=== PATIENT | female | born 1970 | race Caucasian/White ===

== ENCOUNTER 2022-08-12 21:27 | Outpatient (REF) | payer BC, SELFPAY ==
[2022-08-17 14:08] LABS: Age Gdln ACOG Testing Note (.); HPV Aptima Negative (Negative); IGP, Aptima HPV, rfx 16/18,45 Note (.)
== END 2022-08-12 21:28 | disposition home or self-care (01) ==
LOC: LAB 21:27
PROVIDERS: Visit Provider Obstetrics & Gynecology
DX: Z12.4 Encounter for screening for malignant neoplasm of cervix (principal); Z11.51 Encounter for screening for human papillomavirus (HPV)
CPT/HCPCS: 87624; G0145

== ENCOUNTER 2023-10-06 20:07 | Outpatient (REF) | payer BC, OTHER, SELFPAY ==
[2023-10-12 18:11] LABS: Age Gdln ACOG Testing Note (.); HPV Aptima Negative (Negative); IGP, Aptima HPV, rfx 16/18,45 Note (.)
== END 2023-10-06 20:08 | disposition home or self-care (01) ==
LOC: LAB 20:07
PROVIDERS: Visit Provider Physician Assistant
DX: Z01.419 Encounter for gynecological examination (general) (routine) without abnormal findings (principal)
CPT/HCPCS: 87624; 88175

== ENCOUNTER 2024-10-09 19:20 | Outpatient (REF) | payer OTHER, SELFPAY ==
--- OUTSIDE RECORDS SUMMARY | 2024-04-04 05:00 | XMS_ITS ---
Author Organization [facility] in [place] Address [address] [place] [address] Care Team Providers Care Section Laborer Name Role Phone None, Unknown or Primary Care Provider Unavailab Randy Rosas Unavailable [phone] Allergies No Known Allergies REASON FOR VISIT Panniculectomy and Breast Aug Medications Medication SIG (Take, Route, Fr equency, Duration) Notes Start Date End Date Status Singulair 10 MG 1 tablet Orally Once a day Active Zoloft 25 MG 1 tablet Orally Once a day Active Omeprazole 20 MG 1 capsule 1/2 to 1 h our before morning meal Orally Once a day A ctive ProAir HFA Active Social History Tobacco Use: Social History Observation Description Date Details (start date - stop date) Former Smoker 03/25/1995 - 03/25/2020 Tobacco Control (Standard) Question Answer Notes Tobacco use: Former smoker When did you start smoking? 03/25/1995 When did you stop smoking? 03/25/2020 How long has it been since you last smoked? 1-5 years Problems Problem Type SNOMED Code ICD Code Onset Dates Problem Status W/U Status Risk Notes Problem Abdominal pannus (E65) Active confirmed Vital Signs Blood pressure systolic 121 mm Hg 04/04/19 25 Blood pressure diastolic 69 mm Hg 025 Height 5ft 7in in 04/04/2024 Weight 157 lbs 04/04/2024 BMI 24.59 kg/m2 04/04/2024 Encounters Encounter Location Date Provider Diagnosis The [address] [place] [address] 04/04/2024 Randy Acosta Abdominal pannus E65 and Preoperative examination Z01.818 Assessments Encounter Date Diagnosis (ICD Code) Assessment Notes Treatment Notes Treatment Clinical Notes Section Notes 04/04/2024 Abdominal pannus (ICD-10 - E65) Yvonne was seen in the office today for an evaluation for panniculectomy. Patient has done a fantastic job with losing very large amount of weight. 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 This is significantly impacting the patient's life and further exercise goals.Panniculus does not hang below the level of the pubis, documented by photographs. Patient has/has not tried topical solutions for intertrigo for greater than 3 months. I do expect that a panniculectomy is expected to restore normal function or improve functional deficit. Patient has maintained current weight for greater than 6 months. Patient has undergone bariatric surgery at least 18 months ago. I have discussed all risks, benefits, alternatives, and potential complications of panniculectomy including but not limited to bleeding, infection, seroma formation, wound healing issues including ischemia to the flap, necrotizing fasciitis, medical complications including but not limited to thromboembolic processes, anesthesia complications, and injury to surrounding structures. Patient understands all these risks and is willing to proceed. 04/04/2024 Preoperative examination (ICD-10 - Z01.818) 04/04/2024 Other We also discuss ed the patient's issue with her bilateral skin laxity and the surgical options for this. We will send her a quote for abdominoplasty and breast augmentation with lift and when she is ready she is welcome to call. Plan Of Treatment Treatment Notes Assessment Notes Abdominal pannus Yvonne was seen in the office today for an evaluation for panniculectomy. Patient has done a fantastic job with losing very large amount of weight. 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 This is significantly impacting the patient's life and further exercise goals.Panniculus does not hang below the level of the pubis, documented by photographs. Patient has/has not tried topical solutions for intertrigo for greater than 3 months. I do expect that a panniculectomy is expected to restore normal function or improve functional deficit. Patient has maintained current weight for greater than 6 months. Patient has undergone bariatric surgery at least 18 months ago. I have discussed all risks, benefits, alternatives, and potential complications of panniculectomy including but not limited to bleeding, infection, seroma formation, wound healing issues including ischemia to the flap, necrotizing fasciitis, medical complications including but not limited to thromboembolic processes, anesthesia complications, and injury to surrounding structures. Patient understands all these risks and is willing to proceed. Other We also discussed th e patient's issue with her bilateral skin laxity and the surgical options for this. We will send her a quote for abdominoplasty and breast augmentation with lift and when she is ready she is welcome to call. Next Appt Details Follow Up: after precertific ation, Reason: Progress Notes * Mark Anthony GALINDOOB:1970 (54 yo F)Acc No.[id number]:04/04/2024 Progress Notes Patient: Yvonne MONAE Provider: Amber Acosta DO :1970 A ge:54 Y S ex:Female Date:04/04/2024 Address:[facility] [address] [place], [id number] Pcp:Unknown or None Check In:09:11 AM ESTCheck O ut:09:52 AM EST Subjective: * Chief Complaints: * P anniculectomy and Breast Aug * HPI: G eneral: Yvonne is a 54 y/o female who was seen in the office today in consultation for panniculectomy. The patient has previously seen me at [facility] for this. Patient appears with bruising to her face and a headache which the patient reports that she slipped on ice and fell. Patient states that she had a regular mammogram last year at [facility] and has not had any suspicious findingspreviously. Patient has a current bra size of 36DD. - - - - - - - - - - - - - - - - - - - - - - - - - - - - - - - - - - - - - - - - - - - - - - - - - - - - - - - - - - - - - - - - - - - - - - - - - - - - - - - - - - - - - - - - Panniculectomy Work Sheet: Beginning weight: 251 lbs Current weight: 157 lbs How long stable weight: 1 year Smoking: Previously, quit in 2020 Diabetes: No Steroids/Immune Modulators: No Surgery: Gastric By-pass Surgery Date: 2020 Surgeon: Dr. Vasquez Exercise: She works and standing with power walk Hindering Further Exercise/Weight Loss Goals: No ADLs': Infections/Intertrigo: Yes, infection of her umbilicus Treatment: Wash soap/water + keeping the area clean and dry Back Pain: No Treatment: No. * ROS: C ONSTITUTIONAL: good general health, no recent weight change, no fever, no fatigue, no headaches EYES: no eye disease or injury, no glasses/contacts, no blurred/double vision, no glaucoma ENT: No hearing loss or ringing, no chronic sinus problems or rhinitis, no nose bleeds, no sore throat or voice change, no swollen glands in neck CARDIOVASCULAR: No heart trouble, no chest pain or angina, no palpitations, no shortness of breath with walking or lying flat, no swelling of feet, ankles, or hands RESPIRATORY: no chronic or frequent coughs, no spitting up blood, no shortness of breath, no asthma or wheezing GASTROINTESTINAL: No loss of appetite, no change in bowel movements, no nausea or vomiting, no frequent diarrhea, no painful bowel movements or constipation, no rectal bleeding or blood in stool, no abdominal pain or heartburn, no peptic ulcer GENITOURINARY: no frequent urination, no burning or painful urination, no blood in the urine, no change in force or strain with urination, no incontinence or dribbling, no kidney stones, no sexual difficulty, no pain with periods, no irregular periods MUSCULOSKELETAL: no joint pain, no joint stiffness or swelling, no weakness of muscles or joints, no muscle pain or cramps, no back pain, no cold extremities, no difficulty walking INTEGUMENTARY: no rash or itching, no breast pain, no breast lump, no breast discharge NEUROLOGICAL: No frequent or recurring headaches, no lightheadedness or dizziness, no convuslsions or seizures, no numbness or tingling sensation, no tremors, no paralysis, no stroke, no head injury PSYCHIATRIC: no memory loss or confusion, no nervousness, no depression, no insomnia ENDOCRINE: no glandular or hormone problem, no thyroid disease, no diabetes, no excessive thirst or urination, no heat or cold intolerance, skin not becoming dryer HEMATOLOGIC/LYMPHATIC: Not slow to heal after cuts, no bleeding or bruising tendency, no anemia, no phlebitis, no past transfusions, no enlarged glands. * Active Problem List E65 Abdominal pannus Modified On:04/04/2024W/U Status:confirmed * Medical History: * Surgical History: t ubal ligation hysterectomy gastric bypass 2020 * Hospitalization/Major Diagno stic Procedure: D enies Past Hospitalization * Family History: F ather: . M other: alive. S ister(s): alive. 2 sister(s) . 2 son(s) , 1 daughter(s) - healthy. . * Social History: T obacco Use: T obacco Control (Standard) T obacco use: F ormer smoker W hen did you start smoking? 0 03/25/1995 W hen did you stop smoking? 0 03/25/2020 H ow long has it been since you last smoked??1-5 years * Medications: T akingOmeprazole 20 MG Capsule Delayed Release 1 capsule 1/2 to 1 hour before morning meal Orally Once a day ProAir HFA Singulair(Montelukast Sodium) 10 MG Tablet 1 tablet Orally Once a day Zoloft(Sertraline HCl) 25 MG Tablet 1 tablet Orally Once a day Medication List reviewed and reconciled with the patientTaking Omeprazole 20 MG Capsule Delayed Release 1 capsule 1/2 to 1 hour before morning meal Orally Once a day Taking ProAir HFA Taking Singulair(Montelukast Sodium) 10 MG Tablet 1 tablet Orally Once a day Taking Zoloft(Sertraline HCl) 25 MG Tablet 1 tablet Orally Once a day Medication List reviewed and reconciled with the patient * Allergies: N .K.D.A.no[Allergies Verified] Objective: * Vitals: W t:157lbs, Ht: 5ft 7in, BP:121/69mm Hg, BMI:24.59Index, Ht-cm: 170.18 cm, Wt-k.21 kg. * Examination: G eneral Examination: GENERAL APPEARANCE: Alert, well hydrated, in no distress, some facial bruising which patient addressed was due to a fall . ENT: normocephalic, atraumatic. PULMONARY: clear bilateral breath sounds. CHEST: normal anteroposterior (AP) diameter. CARDIO: regular rate and rhythm. BREASTS: B ilateral Breasts - Right Breast Sternal Notch to Nipple: 26 cmRight Breast Nipple to IMF: 7 cmRight Breast Base Diameter: 16 cm Left Breast Sternal Notch to Nipple: 27 cmLeft Breast Nipple to IMF: 8 cmLeft Breast Base Diameter: 17 cm Nipple to Nipple: 24 cm . ABDOMEN: S oft, nontender, nondistended, positive bowel sounds, no peritoneal signs Pannus does not hang below the pubis Pictures were taken in the office today. PERIPHERAL PULSES: 2+ throughout. SKIN: normal. Assessment: * Assessment: 1. A bdominal pannus - E65 (Primary) 2 . P reoperative examination - Z01.818 Plan: * Treatment: 2. P reoperative examination L AB: HEMOGLOBIN A1C (GLYCO) (Order Cancelled) L AB: COTININE/NICOTINE, BLOOD (Order Cancelled) L AB: VITAMIN D, 25 LEVEL (TOTAL) (Order Cancelled) L AB: DRUG SCREEN - URINE W/CONFIRM (Order Cancelled) 3. O thers Notes: We also discussed the patient's issue with her bilateral skin laxity and the surgical options for this. We will send her a quote for abdominoplasty and breast augmentation with lift and when she is ready she is welcome to call. * Procedure Codes: * Disposition & Communication: * Scribe Attestation: Geraldine Jamison (scribe), documented on behalf of Dr. Randy Acosta * Follow Up: a fter precertification * * Sign off status: Completed Visit Status: C HK (Check Out) true * Provider: Amber Acosta DO Date: 0 04/04/2024 Generated for Arleth perez/Louisa/Bevitting on: 0 10/09/2024 02:53 PM EDT History and Physical Notes * HPI (History of Present Illness) Category Sub-Category Detail Notes Category Not es General Yvonne is a 54 y/o female who was seen in the office today in consultation for panniculectomy. The patient has previously seen me at [facility] for this. Patient appears with bruising to her face and a headache which the patient reports that she slipped on ice and fell. Patient states that she had a regular mammogram last year at [facility] and has not had any suspicious findings previously. Patient has a current bra size of 36DD. - - - - - - - - - - - - - - - - - - - - - - - - - - - - - - - - - - - - - - - - - - - - - - - - - - - - - - - - - - - - - - - - - - - - - - - - - - - - - - - - - - - - - - - - Panniculectomy Work Sheet: Beginning weight: 251 lbs Current weight: 157 lbs How long stable weight: 1 year Smoking: Previously, quit in 2020 Diabetes: No Steroids/Immune Modulators: No Surgery: Gastric By-pass Surgery Date: 2020 Surgeon: Dr. Vasquez Exercise: She works and standing with power walk Hindering Further Exercise/Weight Loss Goals: No ADLs': Infections/Intertrigo: Yes, infection of her umbilicus Treatment: Wash soap/water + keeping the area clean and dry Back Pain: No Treatment: No Examination Category Sub-Category Detail Notes Category Not es General Examination GENERAL APPEARANCE: Alert, w ell hydrated, in no distress, some facial bruising which patient addressed was due to a fall ENT: normocephalic, atrau matic CARDIO: regular rate and rhy thm CHEST: normal anteroposteri or (AP) diameter ABDOMEN: Soft, nontender, non distended, positive bowel sounds, no peritoneal signs Pannus does not hang below the pubis Pictures were taken in the office today SKIN: normal PERIPHERAL PULSES: 2+ throughout BREASTS: Bilateral Breasts - Right Breast Sternal Notch to Nipple: 26 cmRight Breast Nipple to IMF: 7 cmRight Breast Base Diameter: 16 cm Left Breast Sternal Notch to Nipple: 27 cmLeft Breast Nipple to IMF: 8 cmLeft Breast Base Diameter: 17 cm Nipple to Nipple: 24 cm PULMONARY: clear bilateral benito th sounds
--- OUTSIDE RECORDS SUMMARY | 2024-10-09 15:00 | XMS_ITS | Encounter Summary ---
Author Organization [facility] Address [address] [place] [address] Care Team Providers Care Accountant Clerk Name Role Phone Laura Madden MD Primary Care Provider [phone]- [phone] Reason for Visit * Reason Comments Well Women Visit Encounter Details Date Type Department Care Team (Late st Contact Info) Description 10/09/2024 3:00 PM EDT Office Visit [facility] [address] [place] [id number] Gemini Orta PA [address] [place], [facility] Hot flashes due to menopause (Primary Dx); Well woman exam with routine gynecological exam; Breast cancer screening by mammogram; Postmenopausal state Social History Tobacco Use Types Packs/Day Years Used Date Smoking Tobacco: Former Cigarettes Q uit: 05/2017 Alcohol Use Standard Drinks/Week Comments Yes 0 (1 standard drink = 0.6 oz pure alcohol) 3 or 4 drinks/monthly or less. Caffeine: none Comments No Sex and Gender Information Value Date Recorded Sex Assigned at Not on file Legal Sex Female 8:06 PM EDT Gender Identity Not on file Sexual Orientation Not on file documented as of this encounter Last Filed Vital Signs Vital Sign Reading Time Taken Comments Blood Pressure 122/78 10/09/2024 3:10 PM EDT Pulse - - Temperature - - Respiratory Rate - - Oxygen Saturation - - Inhaled Oxygen Concentration - - Weight 69.3 kg (152 lb 12.8 oz) 10/09/2024 3:10 PM EDT Height - - Body Mass Index 23.93 10/06/2023 3:19 PM EDT documented in this encounter Progress Notes * CATHI Salgado - 10/09/2024 3:00 PM EDT Reason for Appointment: Patient ID: Yvonne Hendricks is a 54 y.o. female who presents for Well Women Visit Patient presents today for Annual Exam. MEDICATIONS Current Outpatient Medications Medication Instructions albuterol HFA 90 mcg/act inhaler Every 4 hours montelukast (SINGULAIR) 10 mg, Oral, Daily, as directed sertraline (ZOLOFT) 25 mg, Oral, Daily RT Symbicort 160-4.5 MCG/ACT inhaler INHALE 2 PUFFS BY MOUTH TWICE DAILY AROUND THE CLOCK ALLERGIES Allergies Allergen Reactions Cortisone States that cortisone injections give her migraines. Morphine Headache PROBLEMS Active Ambulatory Problems Diagnosis Date Noted No Active Ambulatory Problems Resolved Ambulatory Problems Diagnosis Date Noted No Resolved Ambulatory Problems Past Medical History: Diagnosis Date Anxiety associated with depression Asthma (HCC) Decreased hearing of left ear HTN (hypertension) Mixed conductive and sensorineural hearing loss of left ear, unspecified hearing status on contralateral side Other specified disorders of nose and nasal sinuses Sensorineural hearing loss (SNHL) of left ear with unrestricted hearing of right ear Tinnitus of left ear Vertigo HISTORY PAST MEDICAL HISTORY SOCIAL HISTORY Past Medical History: Diagnosis Date Anxiety associated with depression anxiety/depression Asthma (HCC) Decreased hearing of left ear HTN (hypertension) Mixed conductive and sensorineural hearing loss of left ear, unspecified hearing status on contralateral side Other specified disorders of nose and nasal sinuses Sensorineural hearing loss (SNHL) of left ear with unrestricted hearing of right ear Tinnitus of left ear Vertigo Social History Tobacco Use Smoking status: Former Current packs/day: 0.00 Types: Cigarettes Quit date: 05/2017 Years since quittin.3 Smokeless tobacco: Not on file Substance Use Topics Alcohol use: Yes Comment: 3 or 4 drinks/monthly or less. Caffeine: none Drug use: Not on file FAMILY HISTORY Family History Problem Relation Name Age of Onset Fibromyalgia Mother Hypertension Mother Liver disease Father Diabetes Father Diabetes Maternal Grandmother Heart disease Maternal Grandmother Heart disease Paternal Grandmother Diabetes Paternal Grandfather No Known Problems Son 2 No Known Problems Daughter SURGICAL HISTORY Past Surgical History: Procedure Laterality Date CARPAL TUNNEL RELEASE Left 06/03/2023 Dr Rinaldi CARPAL TUNNEL RELEASE Right 06/24/2023 Dr Rinaldi GASTRECTOMY laparoscopic sleeve gastrectomy HYSTERECTOMY 1999 MR ANGIOGRAM HEAD WO IV CONTRAST 05/06/2017 MR ANGIOGRAM HEAD WO IV CONTRAST 05/06/2017 TUBAL LIGATION 1999 REVIEW OF SYSTEMS Review of Systems: Review of Systems Constitutional: Negative. HENT: Negative. Eyes: Negative. Respiratory: Negative. Cardiovascular: Negative. Gastrointestinal: Negative. Genitourinary: Negative. Musculoskeletal: Negative. Skin: Negative. Neurological: Negative. All other systems reviewed and are negative. Hematological: Negative. Endocrine: Negative. Allergic/Immunologic: Negative. OBJECTIVE Objective: Physical Exam Constitutional: Appearance: Normal appearance. She is well-developed. Genitourinary: Vulva normal. Right Adnexa: not tender and no mass present. Left Adnexa: not tender and no mass present. Cervix is absent. Uterus is absent. Breasts: Breasts are soft. Right: Normal. Left: Normal. HENT: Head: Normocephalic. Nose: Nose normal. Mouth/Throat: Mouth: Mucous membranes are moist. Cardiovascular: Rate and Rhythm: Normal rate and regular rhythm. Pulmonary: Effort: Pulmonary effort is normal. Breath sounds: Normal breath sounds. Abdominal: General: Bowel sounds are normal. There is no distension. Palpations: Abdomen is soft. Tenderness: There is no abdominal tenderness. There is no guarding or rebound. Musculoskeletal: General: No swelling. Normal range of motion. Cervical back: Normal range of motion. Right lower leg: No edema. Left lower leg: No edema. Neurological: General: No focal deficit present. Mental Status: She is alert and oriented to person, place, and time. Skin: General: Skin is warm and dry. Psychiatric: Mood and Affect: Mood normal. Behavior: Behavior normal. Vitals and nursing note reviewed. Exam conducted with a concrete technician present. Vitals: Estimated body mass index is 23.93 kg/m?? as calculated from the following: Height as of 10/06/23: 5' 7 . Weight as of this encounter: 152 lb 12.8 oz. BP: 122/78 No LMP recorded. Patient has had a hysterectomy. ASSESSMENT & PLAN ICD-10-CM 1. Well woman exam with routine gynecological exam Z01.419 THIN PREP TIS PAP AND HR HPV DNA 2. Breast cancer screening by mammogram Z12.31 Bilateral screening mammogram Bilateral screening mammogram 3. Postmenopausal state Z78.0 DEXA bone density Annual Exam: Patient presents today for an annual exam. Patient states she is doing well and has no complaints. Pap was obtained without difficulty. Orders Placed This Encounter Procedures Bilateral screening mammogram DEXA bone density Follow Up: Patient is to return in one year for annual unless needed otherwise. Documented by Hermelinda Andrews LPN on behalf of: CATHI Salgado documented in this encounter Plan of Treatment Upcoming Encounters Date Type Department Care Team (Late st Contact Info) Description 10/11/2025 8:30 AM EDT Procedure Visit [facility] [address] [place] [phone] Gemini Orta PA [address] [place] [address] Scheduled Orders Name Type Priority Associated Diagnoses Orde r Schedule Bilateral screening mammogram Imaging Routine Breast cancer screening by mammogram Expected: 10/09/2024, Expires: 12/09/2025 DEXA bone density Imaging Routine Postmenopausal state Expected: 10/09/2024 (Approximate), Expires: 10/09/2025 THIN PREP TIS PAP AND HR HPV DNA Pathology and Cytology Routine Well woman exam with routine gynecological exam Ordered: 10/09/2024 documented as of this encounter Visit Diagnoses Diagnosis Hot flashes due to menopause- Primary Well woman exam with routine gynecological exam Routine gynecological examination Breast cancer screening by mammogram Postmenopausal state Asymptomatic postmenopausal status (age-related) (natural) documented in this encounter Care Teams Accountant Clerk Relationship Specialty Start Date End Date Laura Madden MD [address] [place] [address] PCP - General Internal Medicine 02/23/23 documented as of this encounter
--- OUTSIDE RECORDS SUMMARY | 2024-10-09 19:24 | XMS_ITS | Encounter Summary ---
Author Organization [facility] Address [address] [place] [address] Care Team Providers Care Ems Instructor Name Role Phone Laura Madden MD Primary Care Provider +1- [phone] Encounter Details Date Type Department Care Team (Late Contact Info) Description 10/13/2023 Orders Only [facility] [address] [place] [address] [place] [address] Arabella Ibrahimsol [place] [address] [place] [address] Social History Tobacco Use Types Packs/Day Years [...] on file documented as of this encounter Plan of Treatment Upcoming Encounters Date Type Department Care Team (Late st Contact Info) Description 10/11/2025 8:30 AM EDT Procedure Visit [facility] [address] [place] [address] Gemini Orta PA [address] [place] [address] documented as of this encounter Procedures Procedure Name Priority Date/Time Associated Diagnosis Comments PAP SMEAR Routine 10/06/2023 12:00 AM EDT documented in this encounter Results * Pap Smear (10/06/2023 12:00 AM EDT) Swab Cervical swab / Unknown [facility] ORDERABLES Final Re sult EXTERNAL LAB documented in this encounter Visit Diagnoses Not on filedocumented in this encounter Care Teams Ems Instructor Relationship Specialty Start Date End Date Laura Madden MD [address] [place] [address] PCP - General Internal Medicine 02/23/23 documented as of this encounter
--- OUTSIDE RECORDS SUMMARY | 2024-10-09 19:24 | XMS_ITS | Clinical Summary ---
Author Organization [employer] Address [id number] [address] [place] [address] Care Team Providers Care Adult Nurse Practitioner Name Role Phone Laura Madden MD Primary Care Provider + Allergies Active Allergy Reactions Criticality Noted Date Comments Cortisone 10/04/2018 States that cortisone injections give her migraines. Medications albuterol (PROVENTIL HFA) 90 mcg/actuation inhaler Inhale 2 puffs every 6 (six) hours as needed for wheezing. Active montelukast sodium (SINGULAIR ORAL) Take 10 mg by mouth daily. Active sertraline (ZOLOFT) 25 mg tablet Take 1 tablet (25 mg total) by mouth in the morning. 1/2 po daily . Active budesonide-form oteroL (SYMBICORT) 80-4.5 mcg/actuation inhaler Inhale 2 puffs once as needed. Active omeprazole (PriLOSEC) 20 mg capsule Take 1 capsule (20 mg total) by mouth daily as needed (heart burn). Active ketorolac (TORADOL) 10 mg tablet Take 1 tablet (10 mg total) by mouth every 6 (six) hours as needed for pain. 20 tablet 09/18/2024 Active sulfamethoxazol e-trimethoprim (BACTRIM DS) 800-160 mg per tablet Take 1 tablet by mouth in the morning and 1 tablet before bedtime. Do all this for 7 days. 14 tablet 09/16/2024 09/24/19 25 Active Problems Problem Noted Date Diagnosed Date Disorder of sacrum 10/19/2018 Overview (10/19/2018): Added automatically from request for surgery [id number] Lumbar spondylosis 07/06/2018 Spinal stenosis of lumbar region 05/30/2018 Overview (05/30/2018): Added automatically from request for surgery [id number] Encounters Date Type Department Care Team Description 09/18/2024 8:40 PM EDT - 09/18/2024 10:04 PM EDT Emergency [facility] Emergency [address] [place] [address] Robert Dos Santos MD Flank pain (Primary Dx) Discharge Disposition: Home 09/18/2024 Travel 09/18/2024 Results Follow-Up [facility] [address] [place] [address] Debbi Dos Santos RN Urine Culture Urine, Clean Catch Midstream 09/15/2024 11:56 PM EDT - 09/16/2024 1:42 AM EDT Emergency [facility] [address] [place] [address] Santino Arellano MD Urinary tract infection with hematuria, site unspecified (Primary Dx); Calculus of gallbladder without cholecystitis without obstruction Discharge Disposition: Home 09/15/2024 Travel from Last 3 Months Immunizations Immunization Administration Dates Next Due Tdap 04/23/2020 Family History Medical History Relation Name Comments Colon cancer Maternal Aunt Colon cancer Maternal Grandfather Breast cancer Neg Hx Relation Name Status Comments Father Maternal Aunt Alive Maternal Grandfather Mother Alive Social History Tobacco Use Types Packs/Day Years Used Date Smoking Tobacco: Former Cigarettes Smokeless Tobacco: Never Tobacco Cessation:Counseling Given: Not Answered Comments:Quit January 04, 2024. Smoked 1/2 pack a day for 25 years Alcohol Use Standard Drinks/Week Comments Not Currently 0 (1 standard drink = 0.6 oz pur e alcohol) occationally Childcare Answer Date Recorded Childcare Unknown 07/28/2018 Employment Answer Date Recorded Employment Unknown 07/28/2018 Hunger Screening Answer Date Recorded Within the past 12 months we worried whether our food would run out before we got money to buy more. Never True 09/18/2024 Within the past 12 months th e food we bought just didn't last and we didn't have money to get more. Never True 09/18/2024 Purpose - Life Answer Date Recorded Purpose and direction in life Unknown Comments No Sex and Gender Information Value Date Recorded Sex Assigned at Not on file Legal Sex Female 11:34 AM EDT Gender Identity Not on file Sexual Orientation Not on file Last Filed Vital Signs Vital Sign Reading Time Taken Comments Blood Pressure 145/94 09/18/2024 9:45 PM EDT Pulse 71 09/18/2024 9:45 PM EDT Temperature 37.1 C (98.8 F) 09/18/2024 8:46 PM EDT Respiratory Rate 16 09/18/2024 9:45 PM EDT Oxygen Saturation 92% 09/18/2024 9:45 PM EDT Inhaled Oxygen Concentration - - Weight 68.5 kg (151 lb) 09/18/2024 8:46 PM EDT Height 170.2 cm (5' 7 ) 09/18/2024 8:46 PM EDT Body Mass Index 23.65 09/18/2024 8:46 PM EDT Plan of Treatment Upcoming Encounters Date Type Department Care Team (Late st Contact Info) Description 11/03/2024 10:30 AM EDT Office Visit [facility] [address] [place] [address] [place] [address] [place] [address] [place] [address], [address] [place] [address] Health Maintenance Due Date Last Done Comments Depression Screening 1984 Zoster (Shingles) Vaccine (1 of 2) 01/04/2022 COVID-19 Vaccine (3 2023-2 5 season) 2023 06/01/2020, 05/04/2020 Influenza Vaccine 10/23/2024 01/17/2024, , 01/06/2022, Additional history exists Adult BMI Screening 09/18/2025 09/18/2024 Tobacco Screening 09/18/2025 09/18/2024 DTaP,Tdap and Td Vaccines (2 - Td or Tdap) 04/23/2030 04/23/2020 Colonoscopy 07/11/2033 07/12/2023, 07/12/2023 Pap Smear Discontinued 10/06/2023 Medical Devices Not on file Procedures Procedure Name Priority Date/Time Associated Diagnosis Comments POCT NURSING URINE MACROSCOPIC UA Routine 09/18/2024 9:13 PM EDT ER EXTRA URINE MARBLE STAT 09/18/2024 9:01 PM EDT ER EXTRA URINE CULTURE STAT 9:01 PM EDT ER EXTRA URINE STAT 09/18/2024 9:01 PM EDT EXTRA TUBES BLUE TOP Routine 09/18/2024 8:56 PM EDT EXTRA TUBES Routine 09/18/2024 8:56 PM EDT COMPREHENSIVE METABOLIC PANEL STAT 09/18/2024 8:56 PM EDT CBC WITH AUTO DIFFERENTIAL STAT 09/18/2024 8:[address] ABDOMEN AND PELVIS WO CONT STAT 09/16/2024 12:48 AM EDT EXTRA TUBES BLUE TOP Routine 09/16/2024 12:27 AM EDT EXTRA TUBES Routine 09/16/2024 12:27 AM EDT COMPREHENSIVE METABOLIC PANEL STAT 09/16/2024 12:27 AM EDT CBC WITH AUTO DIFFERENTIAL STAT 09/16/2024 12:27 AM EDT POCT NURSING URINE MACROSCOPIC UA Routine 09/16/2024 12:18 AM EDT ER EXTRA URINE MARBLE STAT 09/16/2024 12:10 AM EDT ER EXTRA URINE CULTURE STAT 12:10 AM EDT ER EXTRA URINE STAT 09/16/2024 12:10 AM EDT URINE CULTURE STAT 09/16/2024 12:10 AM EDT URINALYSIS Routine 09/15/2024 10:18 AM EDT Dysuria Abdominal pain CHLAMYDIA/GONORRHOEAE BY PCR, URINE Routine 09/15/2024 10:18 AM EDT Dysuria Abdominal pain URINE CULTURE Routine 09/15/2024 10:18 AM EDT Dysuria Abdominal pain COLONOSCOPY 07/12/2023 8:41 AM EDT from Last 3 Months or Most Recently Relevant to Health Maintenance Results * (ABNORMAL) POCT Nursing Urine Macroscopic UA (09/18/2024 9:13 PM EDT) Only the most recent of2 resultswithin the time period is included. POC Urine Specific Tasley >=1.030(A) 1.010, 1.015, 1.020, 1.025 09/18/2024 9:05 PM EDT [facility] POC Urine Leukocyte Esterase Trace(A) Negative 09/18/2024 9:05 PM EDT [facility] POC Urine Nitrite Negative Negative 09/18/2024 9:05 PM EDT [facility] POC Urine pH 6.5 5.0, 6.0, 6.5, 7.0, 7.5, 8.0, 8.5, 5.5 09/18/2024 9:05 PM EDT [facility] POC Urine Protein 30 mg/dL(A) Negative 09/18/2024 9:05 PM EDT [facility] POC Urine Glucose Negative Negative 09/18/2024 9:05 PM EDT [facility] POC Urine Ketones Negative Negative 09/18/2024 9:05 PM EDT [facility] POC Urine Urobilinogen 4.0 E.U./dL 09/18/2024 9:05 PM EDT [facility] POC Urine Bilirubin Small(A) Negative 09/18/2024 9:05 PM EDT [facility] POC Urine Blood/HGB Small(A) Negative 09/18/2024 9:05 PM EDT [facility] Urine 09/18/2024 9:13 PM EDT 09/18/2024 9:05 PM EDT us Robert Dos Santos MD POINT OF CARE TEST ORDERABLES F inal Result Performing Organization Address City/[facility] Co de Phone Number [address] [place] [address], [place] * Extra Urine Bradley (09/18/2024 9:01 PM EDT) Only the most recent of2 resultswithin the time period is included. Extra Tube Auto Resulted 09/18/2024 10:02 PM EDT [facility] Urine Urine specimen collection, clean catch / Unknown 09/18/2024 9:01 PM EDT 09/18/2024 9:05 PM EDT us Kirsty Thomas RADIATION / CHEMISTRY TECHNICIAN-CHEMICAL DEPENDENCY THERAPIST URINE ORDERABLES Final Res ult Performing Organization Address City/[facility] Co de Phone Number [address] [place] [address], [place] * Extra Urine Culture (09/18/2024 9:01 PM EDT) Only the most recent of2 resultswithin the time period is included. Extra Tube Auto Resulted 09/18/2024 10:02 PM EDT [facility] Urine Urine specimen collection, clean catch / Unknown 09/18/2024 9:01 PM EDT 09/18/2024 9:05 PM EDT us Kirsty Thomas RADIATION / CHEMISTRY TECHNICIAN-CHEMICAL DEPENDENCY THERAPIST URINE ORDERABLES Final Res ult Performing Organization Address [facility] Co de Phone Number [address] [place] [address], [place] * Extra Urine (09/18/2024 9:01 PM EDT) Only the most recent of2 resultswithin the time period is included. Extra Tube Auto Resulted 09/18/2024 10:02 PM EDT [facility] Urine Urine specimen collection, clean catch / Unknown 09/18/2024 9:01 PM EDT 09/18/2024 9:05 PM EDT us Kirsty Thomas RADIATION / CHEMISTRY TECHNICIAN-CHEMICAL DEPENDENCY THERAPIST URINE ORDERABLES Final Res ult Performing Organization Address [facility] de Phone Number [address] [place] [address], [place] * Light Blue Top (09/18/2024 8:56 PM EDT) Only the most recent of2 resultswithin the time period is included. Extra Tube Auto Resulted 09/18/2024 10:02 PM EDT [facility] Blood Venous blood / Unknown 09/18/2024 8:56 PM EDT 09/18/2024 9:07 PM EDT us Robert Dos Santos MD LAB BLOOD ORDERABLES Final Resu lt Performing Organization Address [facility] Co de Phone Number [address] [place] [address], [place] * (ABNORMAL) CBC auto differential (09/18/2024 8:56 PM EDT) Only the most recent of2 resultswithin the time period is included. WBC 7.2 4 - 11 x10E9/L 09/18/2024 9:19 PM EDT [facility] RBC Count 4.49 3.8 - 5.2 X10E12/L 09/18/2024 9:19 PM EDT [facility] Hemoglobin 14.5 11.7 - 15.5 g/dL 09/18/2024 9:19 PM EDT [facility] Hematocrit 42.3 35 - 47 % 09/18/2024 9:19 PM EDT [facility] MCV 94 80 - 100 fL 09/18/2024 9:19 PM EDT [facility] MCH 32.2 27 - 34 pg 09/18/2024 9:19 PM EDT [facility] MCHC 34.2 32 - 36 g/dL 09/18/2024 9:19 PM EDT [facility] RDW 13.4 11.5 - 15 % 09/18/2024 9:19 PM EDT [facility] Platelet Count 211 150 - 450 X10E9/L 09/18/2024 9:19 PM EDT [facility] MPV 8.8 7 - 12 fL 09/18/2024 9:19 PM EDT [facility] Neutrophils % 69.1 % 09/18/2024 9:19 PM EDT [facility] Lymphocytes % 15.1 % 09/18/2024 9:19 PM EDT [facility] Monocytes % 14.4 % 09/18/2024 9:19 PM EDT [facility] Eosinophils % 1.1 % 09/18/2024 9:19 PM EDT [facility] Basophils % 0.3 % 09/18/2024 9:19 PM EDT [facility] Neutrophils Absolute (A) 5.0 1.5 - 6.6 10*3/uL 09/18/2024 9:19 PM EDT [facility] Lymphocytes Absolute 1.1 1.0 - 3.5 10*3/uL 09/18/2024 9:19 PM EDT [facility] Monocytes Absolute 1.0(H) 0.0 - 0.9 10*3/uL 09/18/2024 9:19 PM EDT [facility] Eosinophils Absolute 0.1 0.0 - 0.4 10*3/uL 09/18/2024 9:19 PM EDT [facility] Basophils Absolute 0.0 0.0 - 0.2 10*3/uL 09/18/2024 9:19 PM EDT [facility] Differential Type AUTOMATED DIFFERENTIAL 09/18/2024 9:19 PM EDT [facility] Blood Venous blood / Unknown Venipuncture / Unknown 09/18/2024 8:56 PM EDT 09/18/2024 9:07 PM EDT us Kirsty Thomas RADIATION / CHEMISTRY TECHNICIAN-CHEMICAL DEPENDENCY THERAPIST LAB BLOOD ORDERABLES Final Result [facility] [address] [place] [address], [place] * (ABNORMAL) Comprehensive metabolic panel (09/18/2024 8:56 PM EDT) Only the most recent of2 resultswithin the time period is included. SODIUM 141 134 - 146 mmol/L 09/18/2024 9:28 PM EDT [facility] POTASSIUM 3.3(L) 3.5 - 5.0 mmol/L 09/18/2024 9:28 PM EDT [facility] CHLORIDE 105 98 - 109 mmol/L 09/18/2024 9:28 PM EDT [facility] CARBON DIOXIDE 25 22 - 32 mmol/L 09/18/2024 9:28 PM EDT [facility] ANION GAP 11 5 - 15 mmol/L 09/18/2024 9:28 PM EDT [facility] BLOOD UREA NITROGEN 5 5 - 23 mg/dL 09/18/2024 9:28 PM EDT [facility] CREATININE 0.53 0.40 - 1.00 mg/dL 09/18/2024 9:28 PM EDT [facility] Comment:METHOD TRACEABLE TO IDMS STANDARD GLUCOSE 112(H) 65 - 99 mg/dL 09/18/2024 9:28 PM EDT [facility] CALCIUM 8.7 8.5 - 10.5 mg/dL 09/18/2024 9:28 PM EDT [facility] TOTAL PROTEIN 6.5 6.0 - 8.0 g/dL 09/18/2024 9:28 PM EDT [facility] ALBUMIN 3.5 3.2 - 5.3 g/dL 09/18/2024 9:28 PM EDT [facility] ALKALINE PHOSPHATASE 87 39 - 130 U/L 09/18/2024 9:28 PM EDT [facility] AST 34 <=41 U/L 09/18/2024 9:28 PM EDT [facility] ALT 25 <=31 U/L 09/18/2024 9:28 PM EDT [facility] BILIRUBIN,TOTAL 0.5 0.3 - 1.2 mg/dL 09/18/2024 9:28 PM EDT [facility] EGFR Non-Race Dependent >90 >=60 ml/min/1.7 3sq.m 09/18/2024 9:28 PM EDT [facility] Comment: eGFR not reported due to non-numeric value for Creatinine. Reported eGFR is based on the CKD-EPI 2020 equation that does not use a race coefficient. Blood Venous blood / Unknown Venipuncture / Unknown 09/18/2024 8:56 PM EDT 09/18/2024 9:05 PM EDT us Kirsty Thomas RADIATION / CHEMISTRY TECHNICIAN-CHEMICAL DEPENDENCY THERAPIST LAB BLOOD ORDERABLES Final Result [facility] [address] [facility] [place] [address], [place] * CT abdomen and pelvis without contrast (09/16/2024 12:48 AM EDT) Anatomical Region Laterality Modality Body, Abdomen, Body Covera N/A Compu marlen Tomography 09/16/2024 12:4 9 AM EDT Narrative 09/16/2024 1:[address] ABDOMEN AND PELVIS WO CONT CLINICAL HISTORY: Abdominal pain radiating to the right flank COMPARISON: None TECHNIQUE: * CT abdomen and pelvis was performed without the administration of intravenous contrast. Coronal and sagittal reformatted images were generated and reviewed. Automated exposure control was utilized. * All CT scans at this facility use dose modulation, iterative reconstruction, and/or weight based dosing when appropriate to reduce radiation dose to as low as reasonably achievable. FINDINGS: Visualized portions of lung parenchyma appear unremarkable. No pleural or pericardial effusions. No intra-abdominal free air or free fluid. Sleeve gastrectomy. Noncirrhotic liver morphology with no focal hepatic lesion. Mildly distended gallbladder with intraluminal layering sludge/tiny stones. No biliary ductal dilatation. Spleen, pancreas, adrenals appear unremarkable. No nephrolithiasis or suspicious renal lesion. Mild prominence and inflammatory stranding about the right renal pelvis and right ureter. Left kidney and ureter appear unremarkable. Underdistended urinary bladder. No pelvic free fluid. Hysterectomy. The small bowel, terminal ileum, large bowel, and appendix appear unremarkable. No abdominal or pelvic lymphadenopathy. Nonaneurysmal abdominal aorta. Multilevel degenerative changes of the visualized thoracolumbar spine. No acute osseous abnormality. IMPRESSION: * Mild prominence and adjacent stranding about the right renal pelvis and ureter, findings which could relate to recently passed stone or ascending infection. Recommend correlation with urinalysis. * Cholelithiasis. Approved by Resident: Jt Daley MD on 09/16/2024 12:49 AM IAdam MD have personally reviewed the image(s) and agree with and/or edited the report Finalized by Adam Nettles MD on 09/16/2024 1:04 AM Procedure Note Adam Nettles MD - 09/16/2024 CT ABDOMEN AND PELVIS WO CONT CLINICAL HISTORY: Abdominal pain radiating to the right flank COMPARISON: None TECHNIQUE: * CT abdomen and pelvis was performed without the administration ofintravenous contrast. Coronal and sagittal reformatted images weregenerated and reviewed. Automated exposure control was utilized. * All CT scans at this facility use dose modulation, iterativereconstruction, and/or weight based dosing when appropriate to reduceradiation dose to as low as reasonably achievable. FINDINGS: Visualized portions of lung parenchyma appear unremarkable. No pleural orpericardial effusions. No intra-abdominal free air or free fluid. Sleeve gastrectomy. Noncirrhotic liver morphology with no focal hepatic lesion. Mildlydistended gallbladder with intraluminal layering sludge/tiny stones. Nobiliary ductal dilatation. Spleen, pancreas, adrenals appear unremarkable. No nephrolithiasis or suspicious renal lesion. Mild prominence andinflammatory stranding about the right renal pelvis and right ureter. Leftkidney and ureter appear unremarkable. Underdistended urinary bladder. No pelvic free fluid. Hysterectomy. The small bowel, terminal ileum, large bowel, and appendix appearunremarkable. No abdominal or pelvic lymphadenopathy. Nonaneurysmal abdominal aorta. Multilevel degenerative changes of the visualized thoracolumbar spine. Noacute osseous abnormality. IMPRESSION: * Mild prominence and adjacent stranding about the right renal pelvis andureter, findings which could relate to recently passed stone or ascendinginfection. Recommend correlation with urinalysis. * Cholelithiasis. Approved by Resident: Jt Daley MD on 09/16/2024 12:49AM I, Adam Nettles MD have personally reviewed the image(s) and agree withand/or edited the report Finalized by Adam Nettles MD on 09/16/2024 1:04 AM Santino Arellano MD IMG CT ORDERABLES Final Resu lt * (ABNORMAL) Urine Culture Urine, Clean Catch Midstream (09/16/2024 12:10 AM EDT) Only the most recent of2 resultswithin the time period is included. CULTURE RESULTS >100,000 CFU/mL Escherichia coli(A) 09/18/2024 8:02 AM EDT [facility] Urine Urine specimen collection, clean catch / Unknown 09/16/2024 12:10 AM EDT 09/16/2024 12:29 AM EDT Narrative Organism Antibiotic Method Susceptibility Escherichia coli Ampicillin >=32.0: Resistant Escherichia coli AMP/SULBACTAM >=32.0: Resistant Escherichia coli PIPERACIL/TAZOBACTAM <=4.0: Susceptible Escherichia coli Cefazolin (non-urinary) 8.0: Resistant Escherichia coli Cefazolin (urinary) 8.0: Susceptible Escherichia coli Ceftriaxone <=0.25: Susceptible Escherichia coli Gentamicin <=1.0: Susceptible Escherichia coli Ciprofloxacin <=0.06: Susceptible Escherichia coli Levofloxacin <=0.12: Susceptible Escherichia coli Nitrofurantoin <=16.0: Susceptible Escherichia coli Trimethoprim + Sulfamethoxazole <=1.0: Susceptible Santino Arellano MD MICROBIOLOGY - GENERAL ORDER BOO Final Result [facility] [address] [place] [address], * Chlamydia/Gonorrhoeae by PCR, Urine (09/15/2024 10:18 AM EDT) GONORRHOEAE PCR, U Negative Negative 09/16/2024 10:08 AM EDT [facility] Comment:Neisseria gonorrhoea e not detected by nucleic acid amplification. This does not exclude the possibility of infection because results are dependent on adequate specimen collection. CHLAMYDIA PCR, U Negative Negative 09/16/2024 10:08 AM EDT [facility] Comment:Chlamydia trachomati s not detected by nucleic acid amplification. This does not exclude the possibility of infection because results are dependent on adequate specimen collection. Urine Urine specimen collection, clean catch / Unknown Collection / Unknown 09/15/2024 10:18 AM EDT 09/15/2024 1:26 PM EDT Laura Madden MD MICROBIOLOGY - GENERAL O RDERABLES Final Result [facility] [address] [place] [address], * (ABNORMAL) Urinalysis (09/15/2024 10:18 AM EDT) COLOR Yellow Yellow, Colorless 09/15/2024 1:52 PM EDT [facility] TURBIDITY Hazy(A) Clear 09/15/2024 1:52 PM EDT [facility] SPECIFIC GRAVITY 1.022 1.003 - 1.035 09/15/2024 1:52 PM EDT [facility] NITRITE Positive(A) Negative 09/15/2024 1:52 PM EDT [facility] PH,URINE 6.0 5.0 - 8.5 09/15/2024 1:52 PM EDT [facility] LEUKOCYTE ESTERASE Large(A) Negative 09/15/2024 1:52 PM EDT [facility] PROTEIN 50 mg/dL(A) Negative 09/15/2024 1:52 PM EDT [facility] KETONES (URINE) Trace(A) Negative 1:52 PM EDT [facility] UROBILINOGEN <1.1 eu/dL <1.1 eu/dL 09/15/2024 1:52 PM EDT [facility] BILIRUBIN (URINE) Negative Negative 09/15/2024 1:52 PM EDT [facility] BLOOD/HGB Small(A) Negative 09/15/2024 1:52 PM EDT [facility] HYALINE CASTS 3(H) 0 - 2 09/15/2024 1:52 PM EDT [facility] MUCOUS Present(A) None 09/15/2024 1:52 PM EDT [facility] R.B.CELLS 5 0 - 5 09/15/2024 1:52 PM EDT [facility] SQUAMOUS EPITHELIUM <1 0 - 5 09/15/2024 1:52 PM EDT [facility] W.B.CELLS 253(H) 0 - 5 09/15/2024 1:52 PM EDT [facility] GLUCOSE (URINE) Negative Negative 1:52 PM EDT [facility] Urine Urine / Unknown Collection / Unknown 09/15/2024 10:18 AM EDT 09/15/2024 10:22 AM EDT Laura Madden MD URINE ORDERABLES Final R esult [facility] [address] [place] [address], * Colonoscopy (07/12/2023 8:41 AM EDT) 07/12/2023 8:41 AM EDT [facility] CARDIOVASCULAR - 07/12/2023 9:08 AM EDT [facility] Patient Name: Yvonne Hendricks Procedure Date No Time: 07/12/2023 CSN : [id number] Date of : 1970 Admit Type: Outpatient Age: 53 Room: [place] [address] Gender: Female Note Status: Finalized Attending MD: Sloan Mcneill DO, Procedure: Colonoscopy Indications: Rectal bleeding Providers: Sloan Mcneill DO Referring MD: Sloan Mcneill DO Medicines: Propofol per Anesthesia Complications: No immediate complications. Procedure: After I obtained informed consent, the scope was passed under direct vision. Throughout the procedure, the patient's blood pressure, pulse, and oxygen saturations were monitored continuously. The was introduced through the anus and advanced to the cecum, identified by appendiceal orifice and ileocecal valve. The colonoscopy was performed with moderate difficulty due to restricted mobility of the colon, a redundant colon and significant looping. Successful completion of the procedure was aided by increasing the dose of sedation medication and applying abdominal pressure. The patient tolerated the procedure well. The quality of the bowel preparation was excellent. Findings: The perianal and digital rectal examinations were normal. The exam was otherwise without abnormality on direct and retroflexion views. Estimated Blood Loss: Estimated blood loss: none. Impression: - The examination was otherwise normal on direct and retroflexion views. - No specimens collected. Recommendation: - Discharge patient to home. - Patient has a contact number available for emergencies. The signs and symptoms of potential delayed complications were discussed with the patient. Return to normal activities tomorrow. Written discharge instructions were provided to the patient. - Repeat colonoscopy in 10 years for screening purposes. - Return to my office PRN. Procedure Code(s): --- Professional --- 87294, Colonoscopy, flexible; diagnostic, including collection of specimen(s) by brushing or washing, when performed (separate procedure) Diagnosis Code(s): --- Professional --- K62.5, Hemorrhage of anus and rectum CPT copyright 2022 [employer]. All rights reserved. The codes documented in this report are preliminary and upon solution design engineer review may be revised to meet current compliance requirements. DO Sloan Barreto DO 07/12/2023 9:08:10 AM Number of Addenda: 0 Note Initiated On: 07/12/2023 8:41 AM Procedure Note Sloan Mcneill DO - 07/12/2023 [facility] Patient Name: Yvonne Hendricks Procedure Date No Time: 07/12/2023 CSN : [id number] Date of : 1970 Admit Type: Outpatient Age: 53 Room: [place] [address] Gender: Female Note Status: Finalized Attending MD: Sloan Mcneill DO, Procedure: Colonoscopy Indications: Rectal bleeding Providers: Sloan Mcneill DO Referring MD: Sloan Mcneill DO Medicines: Propofol per Anesthesia Complications: No immediate complications. Procedure: After I obtained informed consent, the scope was passed under direct vision. Throughout theprocedure, the patient's blood pressure, pulse, and oxygen saturations were monitored continuously. The was introduced through the anus and advanced to thececum, identified by appendiceal orifice and ileocecalvalve. The colonoscopy was performed with moderatedifficulty due to restricted mobility of the colon, aredundant colon and significant looping. Successfulcompletion of the procedure was aided by increasing the doseof sedation medication and applying abdominalpressure. The patient tolerated the procedure well. Thequality of the bowel preparation was excellent. Findings: The perianal and digital rectal examinations were normal. The exam was otherwise without abnormality on direct and retroflexion views. Estimated Blood Loss: Estimated blood loss: none. Impression: - The examination was otherwise normal on directand retroflexion views. - No specimens collected. Recommendation: - Discharge patient to home. - Patient has a contact number available for emergencies. The signs and symptoms of potential delayed complications were discussed with thepatient. Return to normal activities tomorrow. Written discharge instructions were provided to thepatient. - Repeat colonoscopy in 10 years for screening purposes. - Return to my office PRN. Procedure Code(s): --- Professional --- 50439, Colonoscopy, flexible; diagnostic, including collection of specimen(s) by brushing or washing,when performed (separate procedure) Diagnosis Code(s): --- Professional --- K62.5, Hemorrhage of anus and rectum CPT copyright 2022 [employer]. All rights reserved. The codes documented in this report are preliminary and upon solution design engineer reviewmay be revised to meet current compliance requirements. DO Sloan Barreto DO 07/12/2023 9:08:10 AM Number of Addenda: 0 Note Initiated On: 07/12/2023 8:41 AM Sloan Mcneill DO GI PROCEDURE ORDERABLES Fin al Result PM CARDIOVASCULAR from Last 3 Months or Most Recently Relevant to Health Maintenance Insurance [employer] [place] [address] Care Teams Adult Nurse Practitioner Relationship Specialty Start Date End Date Laura Madden MD [address] [place] [address] PCP - General Pediatrics 09/15/24
--- OUTSIDE RECORDS SUMMARY | 2024-10-09 19:24 | XMS_ITS | Encounter Summary ---
Author Organization [facility] Address [address] [place] [address] Care Team Providers Care Caramel Candy Maker Name Role Phone Laura Madden MD Primary Care Provider +1- [phone] Encounter Details Date Type Department Care Team (Late st Contact Info) Description 10/09/2024 Bamboo flowsheet [facility] [address] [place] [address] [place] [address] Gemini Orta PA [address] [facility] [address] [place], [facility] Social History Tobacco Use Types Packs/Day Years [...] Visit [facility] [address] [facility] [place] [address] Gemini Orta PA [address] [facility] [address] [place], [facility] documented as of this encounter Visit Diagnoses Not on filedocumented in this encounter Care Teams Caramel Candy Maker Relationship Specialty Start Date End Date Laura Madden MD [address] [place] [phone] PCP - General Internal Medicine 02/23/23 documented as of this encounter
--- OUTSIDE RECORDS SUMMARY | 2024-10-09 19:24 | XMS_ITS | Encounter Summary ---
Author Organization [facility] [employer] [facility] [place] tem Address [id number] [place] [address] Care Team Providers Care Pricer Bagger Name Role Phone Laura Madden MD Primary Care Provider + Encounter Details Date Type Department Care Team (Late Contact Info) Description 09/18/2024 Results Follow-Up [facility] - Emergency [address] [place] [phone] Debbi Dos Santos, JEF Urine Culture Urine, Clean Catch Midstream Social History Tobacco Use Types Packs/Day Years Used Date Smoking Tobacco: Former Cigarettes Smokeless Tobacco: Never Comments:Quit January 03 024. Smoked 1/2 pack a day for 25 [...] Encounters Date Type Department Care Team (Late Contact Info) Description 11/03/2024 10:30 AM EDT Office Visit [facility] [address] [place] [phone] Sloan Hummel, [address] [place] [address], [facility] [address], [place] [address] documented as of this encounter Visit Diagnoses Not on filedocumented in this encounter Care Teams Pricer Bagger Relationship Specialty Start Date End Date Laura Madden MD [address] [place] [phone] PCP - General Pediatrics 09/15/24 documented as of this encounter
--- OUTSIDE RECORDS SUMMARY | 2024-10-09 19:24 | XMS_ITS | Encounter Summary ---
Author Organization [facility] Address [address] [facility] [place] [address] Care Team Providers Care Inverted Block Operator Name Role Phone Kyaw Madden MD Primary Care Provider +1- [phone] Encounter Details Date Type Department Care Team (Late st Contact Info) Description 09/22/2022 External Result Encounter [facility] [address] [place] [address] Hoang Gates DO [address] [facility] [address] [place], [facility] Social History Tobacco Use Types Packs/Day Years Used Date Smoking Tobacco: Former Cigarettes Q uit: 05/2017 Alcohol Use Standard Drinks/Week Comments Yes 0 (1 standard drink = 0.6 oz pure alcohol) 3 or 4 drinks/monthly or less. Caffeine: none Comments Unknown Sex and Gender Information Value Date Recorded Sex Assigned at Not on file Legal Sex Female 8:06 PM EDT Gender Identity Not on file Sexual Orientation Not on file documented as of this encounter Plan of Treatment Upcoming Encounters Date Type Department Care Team (Late st Contact Info) Description 10/11/2025 8:30 AM EDT Procedure Visit [facility] [address] [place] [address] Gemini Orta PA [address] [facility] [address] [place], [facility] documented as of this encounter Procedures Procedure Name Priority Date/Time Associated Diagnosis Comments DEXA BONE DENSITY 09/24/2022 12: 25 PM EDT BI MAMMOGRAM SCREENING TOMOSYNTHESIS BILATERAL 09/22/2022 8:30 AM EDT documented in this encounter Results * DEXA bone density (09/24/2022 12:25 PM EDT) Anatomical Region Laterality Modality Body Radiographic Neeta ging 09/24/2022 12:2 5 PM EDT Narrative 09/24/2022 12:24 PM EDT [facility] CLINICAL INFORMATION: Screening for osteoporosis, history of steroid injections TECHNIQUE: Dual X-ray Absorptiometry (DXA) was performed. COMPARISON: No relevant prior studies available. FINDINGS: LUMBAR SPINE (L1-L4): BMD is 1.353 gm/cm2. T-score is 1.3. LEFT FEMORAL NECK: BMD is 0.995 gm/cm2. T-score is -0.3. RIGHT FEMORAL NECK: BMD is 1.009 gm/cm2. T-score is -0.2. The estimated 10-year probability for a major osteoporotic fracture (utilizing FRAX) is 3.7% and for a hip fracture is 0.2%. IMPRESSION: Normal (based on WHO criteria). WHO CLASSIFICATION: Normal: T-score -1.0 or above Osteopenia: T-score -1.1 to < 2.5 Osteoporosis: T-score -2.5 or lower Secondary causes of bone loss should be evaluated if clinically indicated since the etiology of low BMD cannot be determined by BMD measurement alone. Finalized by Sera Hopson MD on 09/24/2022 12:24 PM The copy-to physician of this order is KYAW Do Procedure Note Radiology, Radiologist, - 09/24/2022 THIS EXAM [facility] PERFOR[facility] CLINICAL INFORMATION: Screening for osteoporosis, history of steroid injections TECHNIQUE: Dual X-ray Absorptiometry (DXA) was performed. COMPARISON: No relevant prior studies available. FINDINGS: LUMBAR SPINE (L1-L4): BMD is 1.353 gm/cm2. T-score is 1.3. LEFT FEMORAL NECK: BMD is 0.995 gm/cm2. T-score is -0.3. RIGHT FEMORAL NECK: BMD is 1.009 gm/cm2. T-score is -0.2. The estimated 10-year probability for a major osteoporotic fracture(utilizing FRAX) is 3.7% and for a hip fracture is 0.2%. IMPRESSION: Normal (based on WHO criteria). WHO CLASSIFICATION: Normal: T-score -1.0 or above Osteopenia: T-score -1.1 to < 2.5 Osteoporosis: T-score -2.5 or lower Secondary causes of bone loss should be evaluated if clinically indicatedsince the etiology of low BMD cannot be determined by BMD measurementalone. Finalized by Sera Hopson MD on 09/24/2022 12:24 PM The copy-to physician of this order is KYAW Do [facility] D[facility] PROCEDURES Final Result * Bilateral screening mammogram with tomosynthesis (09/22/2022 8:30 AM EDT) Anatomical Region Laterality Modality Breast Bilateral Mammography 09/22/2022 8:30 AM EDT Narrative 09/22/2022 8:29 AM EDT THIS EXAM [facility] MAMM SCREENING BILATERAL W CAD: 09/21/2022 3:23 PM HISTORY: Screening. PROCEDURE: Bilateral digital mammography performed with tomosynthesis. Computer-aided detection was used in the interpretation of this exam. COMPARISON: Mammogram 06/11/2021 FINDINGS: Both breasts are composed of scattered areas of glandular tissue. There are no masses or microcalcification suspicious for malignancy. No significant interval change. IMPRESSION: * No mammographic suspicion for malignancy. BI-RADS: 1. Negative. Follow up: Routine Screening Mammogram in 12 months. A letter of notification will be sent to the patient regarding the results. Finalized by Jack Lynch MD on 09/22/2022 8:29 AM 1 b MAMM 1 YR The copy-to physician of this order is KYAW Do Procedure Note Radiology, Radiologist, - 09/22/2022 THIS EXAM [facility] PERFOR[facility] AT [facility] MAMM SCREENING BILATERAL W CAD: 09/21/2022 3:23 PM HISTORY: Screening. PROCEDURE: Bilateral digital mammography performed with tomosynthesis. Computer-aided detection was used in the interpretation of this exam. COMPARISON: Mammogram 06/11/2021 FINDINGS: Both breasts are composed of scattered areas of glandular tissue. There are no masses or microcalcification suspicious for malignancy. No significant interval change. IMPRESSION: * No mammographic suspicion for malignancy. BI-RADS: 1. Negative. Follow up: Routine Screening Mammogram in 12 months. A letter of notification will be sent to the patient regarding theresults. Finalized by Jack Lynch MD on 09/22/2022 8:29 AM 1 b MAMM 1 YR The copy-to physician of this order is KYAW Do Hoang Yajaira DO IM BI PROCEDURES Final Result documented in this encounter Visit Diagnoses Not on filedocumented in this encounter Care Teams Inverted Block Operator Relationship Specialty Start Date End Date Kyaw Madden MD [address] [place] [phone] PCP - General Internal Medicine 02/23/23 documented as of this encounter
--- OUTSIDE RECORDS SUMMARY | 2024-10-09 19:24 | XMS_ITS | Clinical Summary ---
Author Organization [facility] Address [address] [place] [address] Care Team Providers Care Wood Turning Lathe Operator Name Role Phone Kyaw Madden MD Primary Care Provider +1- [phone] Allergies Active Allergy Reactions Criticality Noted Date Comments Cortisone 10/04/2018 States that cortisone injections give her migraines. Morphine Headache 08/11/2022 Medications sertraline (Zoloft) 25 MG tablet Take 25 mg by mouth in the morning. Active montelukast (Singulair) 10 MG tablet Take 10 mg by mouth in the morning. as directed. Active albuterol HFA 90 mcg/act inhaler every 4 (four) hours. Active Symbicort 160-4.5 MCG/ACT inhaler INHALE 2 PUFFS BY MOUTH TWICE DAILY AROUND THE CLOCK 03/17/2022 Active Estradiol-Proge sterone (Bijuva) 0.5-100 MG capsuleIndicati ons:Hot flashes due to menopause Take 1 tablet by mouth at bedtime 30 capsule 11 10/09/2024 6 Active Active Problems No known active problems Encounters Date Type Department Care Team Description 10/09/2024 3:00 PM EDT Office Visit [facility] [address] [place] [phone] Gemini Orta PA Hot flashes due to menopause (Primary Dx); Well woman exam with routine gynecological exam; Breast cancer screening by mammogram; Postmenopausal state 10/09/2024 Bamboo flowsheet [facility] [address] [facility] [place] [address] Gemini Orta PA from Last 3 Months Family History Medical History Relation Name Comments No Known Problems Daughter Diabetes Father Liver disease Father Diabetes Maternal Grandmother Heart disease Maternal Grandmother Fibromyalgia Mother Hypertension Mother Diabetes Paternal Grandfather Heart disease Paternal Grandmother No Known Problems Son 2 Relation Name Status Comments Daughter Alive Father Maternal Grandmother Mother Alive Other Spouse Alive Paternal Grandfather Paternal Grandmother Son 2 Alive Social History Tobacco Use Types Packs/Day Years Used Date Smoking Tobacco: Former Cigarettes Q uit: 05/2017 Tobacco Cessation:Counseling Given: Not Answered Alcohol Use Standard Drinks/Week Comments Yes 0 [...] 12.8 oz) 10/09/2024 3:10 PM EDT Height 170.2 cm (5' 7 ) 10/06/2023 3:19 PM EDT Body Mass Index 23.93 10/06/2023 3:19 PM EDT Plan of Treatment Upcoming Encounters Date Type Department Care Team (Late st Contact Info) Description 10/11/2025 8:30 AM EDT Procedure Visit [facility] [address] [facility] [place] [address] Gemini Orta PA [address] [facility] [place] [address] Health Maintenance Due Date Last Done Comments CT Colonography 1972 FIT-DNA 1972 FIT 1970 FOBT 1970 Sigmoidoscopy 1970 Mammogram 09/23/2023 09/22/2022, 08/24, 06/11/2021, Additional history exists Influenza Vaccine (#1) 2024 , 11/11/2022, 01/06/2022, Additional history exists Cervical Cancer Screening 10/05/2028 HPV/Cotest 10/05/2028 Pap Smear 10/05/2028 10/06/2023 Colonoscopy 07/11/2033 07/12/2023, 07/12/2023 Colorectal Cancer Screening 07/11/2033 Procedures Procedure Name Priority Date/Time Associated Diagnosis Comments PAP SMEAR Routine 10/06/2023 12:00 AM EDT BI MAMMOGRAM SCREENING TOMOSYNTHESIS BILATERAL 09/22/2022 8:30 AM EDT from Last 3 Months or Most Recently Relevant to Health Maintenance Results * Pap Smear (10/06/2023 12:00 AM EDT) Swab Cervical swab / Unknown Gemini [facility] CYTOLOGY ORDERABLES Final Re sult EXTERNAL LAB * Bilateral screening mammogram with tomosynthesis (09/22/2022 8:30 AM EDT) Anatomical Region Laterality Modality Breast Bilateral Mammography 09/22/2022 8:30 AM EDT Narrative 09/22/2022 8:29 AM EDT THIS EXAM WAS PERFORMED AT [facility] MAMM SCREENING BILATERAL W CAD: 09/21/2022 [...] is KYAW Do Procedure Note Radiology, Radiologist, MD - 09/22/2022 THIS EXAM WAS PERFORMED AT [facility] MAMM SCREENING BILATERAL W CAD: 09/21/2022 [...] of this order is KYAW Do Hoang Gates DO IM BI PROCEDURES Final Result from Last 3 Months or Most Recently Relevant to Health Maintenance Insurance [employer] Care Teams Wood Turning Lathe Operator Relationship Specialty Start Date End Date Kyaw Madden MD [address] [place] [phone] PCP - General Internal Medicine 02/23/23
--- OUTSIDE RECORDS SUMMARY | 2024-10-09 19:25 | XMS_ITS | Patient Health Record ---
Author Organization [facility] [place] Address [address] [place] [address] Care Team Providers Care Public Relations Analyst Name Role Phone None, Unknown or Primary Care Provider Unavailab Randy Rosas Unavailable [phone] Allergies No Known Allergies Reason For Referral No Information Medications Medication SIG (Take, Route, Fr equency, [...] (E65) Active confirmed Vital Signs Blood pressure diastolic 69 mm Hg 04/04/2024 Height 5ft 7in in 04/04/2024 Blood pressure systolic 121 mm Hg 04/04/2024 Weight 157 lbs 04/04/2024 BMI 24.59 kg/m2 04/04/2024 Encounters Encounter Location Date Provider Diagnosis [facility] [address] [address] [facility] [address] [place] [address] 04/04/2024 Randy Acosta [address] [place] [address] 04/04/2024 Randy Acosta Abdominal pannus E65 and [...] is welcome to call. Plan Of Treatment No Information Insurance Providers Payer Name Payer Address Payer Phone Subscriber Number Group Number Insured Name Patient Relationship to Insured Coverage Start Date Coverage End Date [facility] [employer] [address] [address] [place], [place] [phone] [id number] Yvonne Hendricks Self - patient is the insured Medical (General) History Medical History History ICD Code asthma depression seasonal allergies Surgical History Surgery Date(Month/Year) tubal ligation hysterectomy gastric bypass 2020
--- OUTSIDE RECORDS SUMMARY | 2024-10-09 19:26 | XMS_ITS | CCD ---
Author Organization [facility] ion Partnership [facility] Care Team Providers Care Packager Machine Name Role Phone JESSIE, ROSALINA W Unavailable Unavailable Ramiro, Ashley Medina Unavailable Unavailable ROMAN, ROSALINA W Unavailable Unavailable Hambley, Ashley Arguellesh Unavailable Unavailable ROMAN, ROSALINA W Unavailable Unavailable JHON ., GEMINI Consulting Unavailable JOHN ., GEMINI Attending Unavailable JOHN ., GEMINI Admitting Unavailable JOHN ., GEMINI Consulting Unavailable JOHN ., GEMINI Attending Unavailable JOHN ., GEMINI Admitting Unavailable TAMI VARGAS Attending Unavailable KYAW ROMERO Referring Unavailabl e NICK, [facility] Primary Care UnavailJAXON Spivey Attending Unavailable JR. RINALDI GEORGE C Attending Unavaila JAXON Newton Attending Unavailable EMELYN ZAMARRIPA Attending Unavailable JAXON INTERIANO Attending Unavailable JAXON INTERIANO Attending Unavailable JAXON INTERIANO Attending Unavailable Kyaw Romero MD [facility] Care Provider KYAW ROMERO Referring Unavailabl e NICK, [facility] Primary Care Unavailabl e NICK, [facility] Referring Unavailabl e NICK, [facility] Primary Care Unavailabl e NICK, [facility] Primary Care Unavailabl LASHELL Lao Attending Unavailable NICK [facility] Primary Care Unavailabl HAYDER Jarrett Attending Unavailable Allergies Allergy Classification Reported Allergen(s) Allergy Type Date of Onset Reaction(s) Facility (6 sources) Cortisone; Translations: [CORTISONE] Drug Allergy 10-04-2018 [facility] (4 sources) Morphine Drug Allergy 08-11-2022 Headache [facility] Medications Current Medications Medication Drug Class(es) Dates Sig (Normalized) Sig (Original) [id number] 200 actuat albuterol 0.09 mg/actuat metered dose inhaler (4 sources) beta2-Adrenergic Agonist albuterol HFA 90 mcg/act inhaler every 4 (four) hours. Active 60 actuat budesonide 0.16 mg/actuat / formoterol fumarate 0.0045 mg/actuat metered dose inhaler (4 sources) Corticosteroid, beta2-Adrenergic Agonist Start: 03-17-2022 take 2 puff(s) by mouth twice daily Symbicort 160-4.5 MCG/ACT inhaler INHALE 2 PUFFS BY MOUTH TWICE DAILY AROUND THE CLOCK 03/17/2022 Active Estradiol / Progesterone (2 sources) Progesterone, Estrogen Start: 10-09-2024 End: 10-09-2025 take 0.5-100 mg by mouth at bedtime Estradiol-Progest erone (Bijuva) 0.5-100 MG capsule Indications: Hot flashes due to menopause Take 1 tablet by mouth at bedtime 30 capsule 11 10/09/2024 10/09/2025 Active montelukast 10 mg oral tablet (4 sources) Leukotriene Receptor Antagonist take 1 tablet by mouth in the morning montelukast (Singulair) 10 MG tablet Take 10 mg by mouth in the morning. as directed. Active sertraline 25 mg oral tablet (4 sources) Serotonin Reuptake Inhibitor take 1 tablet by mouth in the morning sertraline (Zoloft) 25 MG tablet Take 25 mg by mouth in the morning. Active Problems Active Problems Problem Classification Problem Date Documented Da te Episodic/Chronic Abdominal pain (2 sources) Flank pain; Translations: [Unspecified abdominal pain] Onset: 09-15-2024 Episodic Biliary tract disease (1 source) Calculus of gallbladder without cholecystitis without obstruction; Translations: [Calculus of gallbladder without cholecystitis without obstruction] Onset: 09-15-2024 Episodic Gastrointestinal hemorrhage (1 source) Melena; Translations: [Melena] Onset: 06-28-2023 Episodic Genitourinary symptoms and ill-defined conditions (2 sources) Hematuria, unspecified; Translations: [Dysuria] Onset: 10-01-2023 Episodic Hemorrhoids (2 sources) Unspecified hemorrhoids; Translations: [Hemorrhoids] Onset: 06-28-2023 Episodic Inflammatory diseases of female pelvic organs (4 sources) Acute vaginitis; Translations: [ACUTE VAGINITIS] Onset: 06-29-2022 Episodic Menopausal disorders (2 sources) Menopausal flushing; Translations: [Menopausal and female climacteric states] 10-09-2024 Chronic Other screening for suspected conditions (not mental disorders or infectious disease) (2 sources) Patient encounter status; Translations: [Encounter for screening mammogram for malignant neoplasm of breast] 10-09-2024 Episodic Residual codes; unclassified (2 sources) Postmenopausal state; Translations: [Asymptomatic menopausal state] 10-09-2024 Episodic Unclassified (2 sources) Painful Urination Onset: 09-15-2024 Urinary tract infections (1 source) Urinary tract infection, site not specified; Translations: [Urinary tract infection, site not specified] Onset: 09-15-2024 Episodic Past or Other Problems Problem Classification Problem Date Documented Date Episodic/Chronic Immunizations and screening for infectious disease (1 source) Encounter for screening for infections with a predominantly sexual mode of transmission; Translations: [ENC SCREEN INFECTIONS SEXL TRANSMS] Onset: 04-02-2022 Episodic Malaise and fatigue (1 source) Other fatigue; Translations: [Other fatigue] Onset: 10-01-2023 Episodic Other female genital disorders (4 sources) Other specified noninflammatory disorders of vagina; Translations: [OTH SPEC NONINFLAMMATORY D/O VAGINA] Onset: 04-01-2022 Episodic Other nutritional; endocrine; and metabolic disorders (1 source) Abnormal weight loss; Translations: [Abnormal weight loss] Onset: 10-01-2023 Episodic Results Test Name Value Interpretation Reference Range Facility CBC WITH AUTO DIFFERENTIALon 09-18-2024 BASOPHILS ABSOLUTE COUNT (10*3/UL) BY AUTOMATED COUNT 0.0 10*3/uL Normal 0.0-0.2 [facility] Comment on above: Performed By: #### C BCA, CMP, THYR #### [facility] ([id number]) [address] [place] [address] BASOPHILS RELATIVE PERCENT BY AUTOMATED COUNT 0.3 % Normal [facility] Comment on above: Performed By: #### C BCA, CMP, THYR #### [facility] ([id number]) [address] [address] [place] [address] CELLAVISION DIFFERENTIAL TYPE AUTOMATED DIFFERENTIAL Normal [facility] Comment on above: Performed By: #### C BCA, CMP, THYR #### [facility] ([id number]) [address] [address] [place] [address] Eosinophils (Bld) [#/Vol] 0.1 10*3/uL Normal 0.0-0.4 [facility] Comment on above: Performed By: #### C BCA, CMP, THYR #### [facility] ([id number]) [address] [address] [place] [address] EOSINOPHILS RELATIVE PERCENT BY AUTOMATED COUNT 1.1 % Normal [facility] Comment on above: Performed By: #### C BCA, CMP, THYR #### [facility] ([id number]) [address] [address] [place] [address] Erythrocyte distribution width (RBC) [Ratio] 13.4 % Normal 11.5-15 [facility] Comment on above: Performed By: #### C BCA, CMP, THYR #### [facility] ([id number]) [address] [address] [place] [address] Hematocrit (Bld) [Volume fraction] 42.3 % Normal 35-47 [facility] Comment on above: Performed By: #### C BCA, CMP, THYR #### [facility] ([id number]) [address] [address] [place] [address] Hemoglobin (Bld) [Mass/Vol] 14.5 g/dL Normal 11.7-15.5 [facility] Comment on above: Performed By: #### C BCA, CMP, THYR #### [facility] ([id number]) [address] [address] [place] [address] LYMPHOCYTES ABSOLUTE COUNT (10*3/UL) BY AUTOMATED COUNT 1.1 10*3/uL Normal 1.0-3.5 [facility] Comment on above: Performed By: #### C BCA, CMP, THYR #### [facility] ([id number]) [address] [facility] [address] [place] [address] LYMPHOCYTES RELATIVE PERCENT BY AUTOMATED COUNT 15.1 % Normal [facility] Comment on above: Performed By: #### C BCA, CMP, THYR #### [facility] ([id number]) [address] [facility] [address] [place] [address] MCH (RBC) [Entitic mass] 32.2 pg Normal 27-34 [facility] Comment on above: Performed By: #### C BCA, CMP, THYR #### [facility] ([id number]) [address] [address] [place] [address] MCHC (RBC) [Mass/Vol] 34.2 g/dL Normal 32-36 [facility] Comment on above: Performed By: #### C BCA, CMP, THYR #### [facility] ([id number]) [address] [facility] [address] [place] [address] MCV (RBC) [Entitic vol] 94 fL Normal 80-100 [facility] Comment on above: Performed By: #### C BCA, CMP, THYR #### [facility] ([id number]) [address] [address] [place] [address] MONOCYTES ABSOLUTE COUNT (10*3/UL) BY AUTOMATED COUNT 1.0 10*3/uL High 0.0-0.9 [facility] Comment on above: Performed By: #### C BCA, CMP, THYR #### [facility] ([id number]) [address] [address] [place] [address] MONOCYTES RELATIVE PERCENT BY AUTOMATED COUNT 14.4 % Normal [facility] Comment on above: Performed By: #### C BCA, CMP, THYR #### [facility] ([id number]) [address], [address] [place] [address] NEUTROPHILS ABSOLUTE COUNT BY AUTOMATED COUNT 5.0 10*3/uL Normal 1.5-6.6 [facility] Comment on above: Performed By: #### C BCA, CMP, THYR #### [facility] ([id number]) [address], [address] [place] [address] NEUTROPHILS RELATIVE PERCENT BY AUTOMATED COUNT 69.1 % Normal [facility] Comment on above: Performed By: #### C BCA, CMP, THYR #### [facility] ([id number]) [address] [place] [address] Platelet mean volume (Bld) [Entitic vol] 8.8 fL Normal 7-12 [facility] Comment on above: Performed By: #### C BCA, CMP, THYR #### [facility] ([id number]) [address], [address] [place] [address] Platelets (Bld) [#/Vol] 211 10*3/uL Normal 150-450 [facility] Comment on above: Performed By: #### C BCA, CMP, THYR #### [facility] ([id number]) [address] [place] [address] RBC COUNT 4.49 X10E12/L Normal 3.8-5.2 [facility] Comment on above: Performed By: #### C BCA, CMP, THYR #### [facility] ([id number]) [address] [address] [place] [address] WBC (Bld) [#/Vol] 7.2 10*3/uL Normal 4-11 [facility] Comment on above: Performed By: #### C BCA, CMP, THYR #### [facility] ([id number]) [address], [address] [place] [address] COMPREHENSIVE METABOLIC PANE Heber 09-18-2024 Albumin [Mass/Vol] 3.5 g/dL Normal 3.2-5.3 [facility] Comment on above: Performed By: #### C BCA, CMP, THYR #### [facility] ([id number]) [address], [address] [place] [address] ALP [Catalytic activity/Vol] 87 U/L Normal 39-130 [facility] Comment on above: Performed By: #### C BCA, CMP, THYR #### [facility] ([id number]) [address], [address] [place] [address] ALT [Catalytic activity/Vol] 25 U/L Normal <=31 [facility] Comment on above: Performed By: #### C BCA, CMP, THYR #### [facility] ([id number]) [address], [address] [place] [address] Anion gap [Moles/Vol] 11 mmol/L Normal 5-15 [facility] Comment on above: Performed By: #### C BCA, CMP, THYR #### [facility] ([id number]) [address], [address] [place] [address] AST [Catalytic activity/Vol] 34 U/L Normal <=41 [facility] Comment on above: Performed By: #### C BCA, CMP, THYR #### [facility] ([id number]) [address], [address] [place] [address] Bilirubin [Mass/Vol] 0.5 mg/dL Normal 0.3-1.2 [facility] Comment on above: Performed By: #### C BCA, CMP, THYR #### [facility] ([id number]) [address], [address] [place] [address] Calcium [Mass/Vol] 8.7 mg/dL Normal 8.5-10.5 [facility] Comment on above: Performed By: #### C BCA, CMP, THYR #### [facility] ([id number]) [address], [address] [place] [address] Chloride [Moles/Vol] 105 mmol/L Normal 98-109 [facility] Comment on above: Performed By: #### C BCA, CMP, THYR #### [facility] ([id number]) [address] [address] [place] [address] CO2 [Moles/Vol] 25 mmol/L Normal 22-32 [facility] Comment on above: Performed By: #### C BCA, CMP, THYR #### [facility] ([id number]) [address] [address] [place] [address] Creatinine [Mass/Vol] 0.53 mg/dL Normal 0.40-1.00 [facility] Comment on above: Result Comment: METH OD TRACEABLE TO IDMS STANDARD Performed By: #### C BCA, CMP, THYR #### [facility] ([id number]) [address], [address] [place] [address] EGFR (CKD-EPI) NON-RACE DEPENDENT >^90 Normal >=60 [facility] Comment on above: Result Comment: eGFR not reported due to non-numeric value for Creatinine. Reported eGFR is based on the CKD-EPI 2021 equation that does not use a race coefficient. Performed By: #### C BCA, CMP, THYR #### [facility] ([id number]) [address] [address] [place] [address] Glucose [Mass/Vol] 112 mg/dL High 65-99 [facility] Comment on above: Performed By: #### C BCA, CMP, THYR #### [facility] ([id number]) [address] [address] [place] [address] Potassium [Moles/Vol] 3.3 mmol/L Low 3.5-5.0 [facility] Comment on above: Performed By: #### C BCA, CMP, THYR #### [facility] ([id number]) [address], [address] [place] [address] Protein [Mass/Vol] 6.5 g/dL Normal 6.0-8.0 [facility] Comment on above: Performed By: #### C BCA, CMP, THYR #### [facility] ([id number]) [address], [address] [place] [address] Sodium [Moles/Vol] 141 mmol/L Normal 134-146 [facility] Comment on above: Performed By: #### C BCA, CMP, THYR #### [facility] ([id number]) [address], [address] [place] [address] Urea nitrogen [Mass/Vol] 5 mg/dL Normal 5-23 [facility] Comment on above: Performed By: #### C BCA, CMP, THYR #### [facility] ([id number]) [address], [address] [place] [address] POCT NURSING URINE MACROSCOP IC UAon 09-18-2024 BILIRUBIN VINCE Small Abnormal Negative [facility] Comment on above: Performed By: #### C BCA, CMP, THYR #### [facility] ([id number]) [address], [address] [place] [address] BLOOD/HGB VINCE Small Abnormal Negative [facility] Comment on above: Performed By: #### C BCA, CMP, THYR #### [facility] ([id number]) [address], [address] [place] [address] GLUCOSE VINCE Negative Normal Negative [facility] Comment on above: Performed By: #### C BCA, CMP, THYR #### [facility] ([id number]) [address], [address] [place] [address] KETONES VINCE Negative Normal Negative [facility] Comment on above: Performed By: #### C BCA, CMP, THYR #### [facility] ([id number]) [address], [address] [place] [address] LEUKOCYTE ESTERASE VINCE Trace Abnormal Negative [facility] Comment on above: Performed By: #### C BCA, CMP, THYR #### [facility] ([id number]) [address], [address] [place] [address] NITRITE VINCE Negative Normal Negative [facility] Comment on above: Performed By: #### C BCA, CMP, THYR #### [facility] ([id number]) [address], [address] [place] [address] PH VINCE 6.5 Normal 5.0, 6.0, 6.5, 7.0, 7.5, 8.0, 8.5, 5.5 [facility] Comment on above: Performed By: #### C BCA, CMP, THYR #### [facility] ([id number]) [address], [address] [place] [address] PROTEIN VINCE 30 mg/dL Abnormal Negative [facility] Comment on above: Performed By: #### C BCA, CMP, THYR #### [facility] ([id number]) [address], [address] [place] [address] SPECIFIC GRAVITY VINCE >=1.030 Abnormal 1.010, 1.015, 1.020, 1.025 [facility] Comment on above: Performed By: #### C BCA, CMP, THYR #### [facility] ([id number]) [address], [address] [place] [address] UROBILINOGEN VINCE 4.0 E.U./dL Normal [facility] Comment on above: Performed By: #### C BCA, CMP, THYR #### [facility] ([id number]) [address], [address] [place] [address] CBC WITH AUTO DIFFERENTIALon 09-16-2024 BASOPHILS ABSOLUTE COUNT (10*3/UL) BY AUTOMATED COUNT 0.0 10*3/uL Normal 0.0-0.2 [facility] Comment on above: Performed By: #### C BCA #### [facility]) [address] [place] [address] VIR BASOPHILS RELATIVE PERCENT BY AUTOMATED COUNT 0.2 % Normal [facility] Comment on above: Performed By: #### C BCA #### [facility] ([address] [address] VIR CELLAVISION DIFFERENTIAL TYPE AUTOMATED DIFFERENTIAL Normal [facility] Comment on above: Performed By: #### C BCA #### [facility] ([address] [address] VIR Eosinophils (Bld) [#/Vol] 0.1 10*3/uL Normal 0.0-0.4 [facility] Comment on above: Performed By: #### C BCA #### [facility] ([address] [address] VIR EOSINOPHILS RELATIVE PERCENT BY AUTOMATED COUNT 1.2 % Normal [facility] Comment on above: Performed By: #### C BCA #### [facility] ([address] [place] [address] VIR Erythrocyte distribution width (RBC) [Ratio] 13.7 % Normal 11.5-15 [facility] Comment on above: Performed By: #### C BCA #### [facility] ([address] [address] VIR Hematocrit (Bld) [Volume fraction] 43.0 % Normal 35-47 [facility] Comment on above: Performed By: #### C BCA #### [facility] ([address] [place] [address] VIR Hemoglobin (Bld) [Mass/Vol] 14.9 g/dL Normal 11.7-15.5 [facility] Comment on above: Performed By: #### C BCA #### [facility] ([address] [address] VIR LYMPHOCYTES ABSOLUTE COUNT (10*3/UL) BY AUTOMATED COUNT 0.8 10*3/uL Low 1.0-3.5 [facility] Comment on above: Performed By: #### C BCA #### [facility] ([address] [address] VIR LYMPHOCYTES RELATIVE PERCENT BY AUTOMATED COUNT 10.2 % Normal [facility] Comment on above: Performed By: #### C BCA #### [facility] ([address] [address] VIR MCH (RBC) [Entitic mass] 32.6 pg Normal 27-34 [facility] Comment on above: Performed By: #### C BCA #### [facility] ([address] [address] VIR MCHC (RBC) [Mass/Vol] 34.6 g/dL Normal 32-36 [facility] Comment on above: Performed By: #### C BCA #### [facility] ([address] [address] VIR MCV (RBC) [Entitic vol] 94 fL Normal 80-100 [facility] Comment on above: Performed By: #### C BCA #### [facility] ([address] [address] VIR MONOCYTES ABSOLUTE COUNT (10*3/UL) BY AUTOMATED COUNT 1.1 10*3/uL High 0.0-0.9 [facility] Comment on above: Performed By: #### C BCA #### [facility] ([address] [address] VIR MONOCYTES RELATIVE PERCENT BY AUTOMATED COUNT 13.6 % Normal [facility] Comment on above: Performed By: #### C BCA #### [facility] ([address] [place] [address] VIR NEUTROPHILS ABSOLUTE COUNT BY AUTOMATED COUNT 6.1 10*3/uL Normal 1.5-6.6 [facility] Comment on above: Performed By: #### C BCA #### [facility] ([address] [place] [address] VIR NEUTROPHILS RELATIVE PERCENT BY AUTOMATED COUNT 74.8 % Normal [facility] Comment on above: Performed By: #### C BCA #### [facility] ([address] [address] VIR Platelet mean volume (Bld) [Entitic vol] 9.1 fL Normal 7-12 [facility] Comment on above: Performed By: #### C BCA #### [facility] ([address] [address] VIR Platelets (Bld) [#/Vol] 231 10*3/uL Normal 150-450 [facility] Comment on above: Performed By: #### C BCA #### [facility] ([address] [address] VIR RBC COUNT 4.57 X10E12/L Normal 3.8-5.2 [facility] Comment on above: Performed By: #### C BCA #### [facility] ([address] [address] VIR WBC (Bld) [#/Vol] 8.2 10*3/uL Normal 4-11 [facility] Comment on above: Performed By: #### C BCA #### [facility] ([address] [address] VIR COMPREHENSIVE METABOLIC PANE Heber 09-16-2024 Albumin [Mass/Vol] 3.8 g/dL Normal 3.2-5.3 [facility] Comment on above: Performed By: #### C MP #### [facility] ([address] [place] [address] VIR ALP [Catalytic activity/Vol] 94 U/L Normal 39-130 [facility] Comment on above: Performed By: #### C MP #### [facility] ([address] [place] [address] VIR ALT [Catalytic activity/Vol] 31 U/L Normal <=31 [facility] Comment on above: Performed By: #### C MP #### [facility] ([address] [place] [address] VIR Anion gap [Moles/Vol] 11 mmol/L Normal 5-15 [facility] Comment on above: Performed By: #### C MP #### [facility] ([address] [place] [address] VIR AST [Catalytic activity/Vol] 47 U/L High <=41 [facility] Comment on above: Performed By: #### C MP #### [facility] ([address] [place] [address] VIR Bilirubin [Mass/Vol] 1.1 mg/dL Normal 0.3-1.2 [facility] Comment on above: Performed By: #### C MP #### [facility] ([address] [place] [address] VIR Calcium [Mass/Vol] 8.8 mg/dL Normal 8.5-10.5 [facility] Comment on above: Performed By: #### C MP #### [facility] ([address] [place] [address] VIR Chloride [Moles/Vol] 105 mmol/L Normal 98-109 [facility] Comment on above: Performed By: #### C MP #### [facility] [address] [place] [address] VIR CO2 [Moles/Vol] 26 mmol/L Normal 22-32 [facility] Comment on above: Performed By: #### C MP #### [facility] ([facility]) [address] [place], [place] [address] [address] VIR Creatinine [Mass/Vol] 0.44 mg/dL Normal 0.40-1.00 [facility] Comment on above: Result Comment: METH OD TRACEABLE TO IDMS STANDARD Performed By: #### C MP #### [facility] ([address] [place] [address] VIR EGFR (CKD-EPI) NON-RACE DEPENDENT >^90 Normal >=60 [facility] Comment on above: Result Comment: eGFR not reported due to non-numeric value for Creatinine. Reported eGFR is based on the CKD-EPI 2020 equation that does not use a race coefficient. Performed By: #### C MP #### [facility] ([address] [place] [address] VIR Glucose [Mass/Vol] 97 mg/dL Normal 65-99 [facility] Comment on above: Performed By: #### C MP #### [facility] ([address] [place] [address] VIR Potassium [Moles/Vol] 3.4 mmol/L Low 3.5-5.0 [facility] Comment on above: Performed By: #### C MP #### [facility] ([address] [place] [address] VIR Protein [Mass/Vol] 6.9 g/dL Normal 6.0-8.0 [facility] Comment on above: Performed By: #### C MP #### [facility] ([address] [place] [address] VIR Sodium [Moles/Vol] 142 mmol/L Normal 134-146 [facility] Comment on above: Performed By: #### C MP #### [facility] ([facility]) [address] [place] [address] VIR Urea nitrogen [Mass/Vol] 8 mg/dL Normal 5-23 [facility] Comment on above: Performed By: #### C MP #### [facility] HEALTH) [address] [place] [address] ABDOMEN AND PELVIS WO CON Ton 09-16-2024 CT ABDOMEN AND PELVIS WO CONT CT ABDOMEN AND PELVIS WO CONT CT ABDOMEN AND PELVIS WO CONT CLINICAL [...] Jt Daley MD on 09/16/2024 12:49 AM I, Adam Nettles MD have personally reviewed the image(s) and agree with and/or edited the report Finalized by Adam Nettles MD on 09/16/2024 1:04 AM Normal [facility] POCT NURSING URINE MACROSCOP IC UAon 09-16-2024 BILIRUBIN VINCE Negative Normal Negative [facility] Comment on above: Performed By: #### N UM #### [facility] ([address] [place] [address] VIR BLOOD/HGB VINCE Moderate Abnormal Negative [facility] Comment on above: Performed By: #### N UM #### [facility] ([address] [place] [address] VIR GLUCOSE VINCE Negative Normal Negative [facility] Comment on above: Performed By: #### N UM #### [address] [place] [address] VIR KETONES VINCE Negative Normal Negative [facility] Comment on above: Performed By: #### N UM #### [facility] ([address] [place] [address] VIR LEUKOCYTE ESTERASE VINCE Large Abnormal Negative [facility] Comment on above: Performed By: #### N UM #### [facility] ([address] [place] [address] VIR NITRITE VINCE Negative Normal Negative [facility] Comment on above: Performed By: #### N UM #### [facility] ([address] [place] [address] VIR PH VINCE 7.0 Normal 5.0, 6.0, 6.5, 7.0, 7.5, 8.0, 8.5, 5.5 [facility] Comment on above: Performed By: #### N UM #### [facility] ([address] [place] [address] VIR PROTEIN VINCE 30 mg/dL Abnormal Negative [facility] Comment on above: Performed By: #### N UM #### [facility] ([place] [address] [place] [address] VIR SPECIFIC GRAVITY VINCE 1.020 Normal 1.010, 1.015, 1.020, 1.025 [facility] Comment on above: Performed By: #### N UM #### [facility] ([facility]) [address] [place] [address] VIR UROBILINOGEN VINCE 1.0 E.U./dL Normal [facility] Comment on above: Performed By: #### N UM #### [facility] ([facility]) [address] [place] [address] [place] [address] VIR URINE CULTUREon 09-16-2024 Bacteria identified Cx Nom (U) CULTURE RESULTS ESCHERICHIA COLI >100,000 CFU/mL Escherichia coli [ S = SUSCEPTIBLE R = RESISTANT I = INTERMEDIATE S-DO = Susceptible-dose dependent NS = Non-suscceptible NO = No Interpretation ] Organism: ESCHERICHIA COLI Antibiotic Interpretation ELINOR Status Ampicillin R >=^32.0 F AMP/SULBACTAM R >=^32.0 F PIPERACIL/TAZOBACTAM S <=^4.0 F Cefazolin (non-urinary) R 8.0 F Cefazolin (urinary) S 8.0 F Ceftriaxone S <=^0.25 F Gentamicin S <=^1.0 F Ciprofloxacin S <=^0.06 F Levofloxacin S <=^0.12 F Nitrofurantoin S <=^16.0 F Trimethoprim + Sulfamethoxazole S <=^1.0 F Susceptible [facility] Comment on above: Performed By: #### C BCA, CMP, THYR #### [facility] ([id number]) [address] [place] [address], [address] [place] [address] CHLAMYDIA/GONORRHOEAE BY PCR , URINEon 09-15-2024 CHLAMYDIA/GONORRHOEA E BY PCR, URINE GONORRHOEAE PCR, U Negative Neisseria gonorrhoeae not detected by nucleic acid amplification. This does not exclude the possibility of infection because results are dependent on adequate specimen collection. CHLAMYDIA PCR, U Negative Chlamydia trachomatis not detected by nucleic acid amplification. This does not exclude the possibility of infection because results are dependent on adequate specimen collection. Normal [facility] Comment on above: Performed By: #### C BCA, CMP, THYR #### [facility] ([id number]) [address], [address] [place] [address] URINALYSISon 09-15-2024 Bilirubin Ql (U) Negative Normal Negative [facility] Comment on above: Performed By: #### U A #### [facility] ([facility]) [address] [place] [address] VIR BLOOD/HGB Small Abnormal Negative [facility] Comment on above: Performed By: #### U A #### [facility] ([facility]) [address] [place] [address] VIR Color (U) Yellow Normal Yellow, Colorless [facility] Comment on above: Performed By: #### U A #### [facility] ([facility]) [address] [place] [address] VIR Glucose Ql (U) Negative Normal Negative [facility] Comment on above: Performed By: #### U A #### [facility] ([facility]) [address] [place] [address] VIR Hyaline casts LM Ql (Urine sed) 3 High 0-2 [facility] Comment on above: Performed By: #### U A #### [facility] ([facility]) [address] [place] [address] VIR Ketones Ql (U) Trace Abnormal Negative [facility] Comment on above: Performed By: #### U A #### [facility] ([facility]) [address] [place] [address] VIR Leukocyte esterase Test strip Ql (U) Large Abnormal Negative [facility] Comment on above: Performed By: #### U A #### [facility] ([facility]) [address] [place] [address] VIR MUCOUS Present Abnormal None [facility] Comment on above: Performed By: #### U A #### [facility] ([facility]) [address] [place] [address] VIR Nitrite Ql (U) Positive Abnormal Negative [facility] Comment on above: Performed By: #### U A #### [facility] ([facility]) [address] [place] [address] VIR PH,URINE 6.0 Normal 5.0-8.5 [facility] Comment on above: Performed By: #### U A #### [facility] ([facility]) [address] [place] [address] VIR Protein Ql (U) 50 mg/dL Abnormal Negative [facility] Comment on above: Performed By: #### U A #### [facility] ([facility]) [address] [place] [address] VIR R.B.CELLS 5 Normal 0-5 [facility] Comment on above: Performed By: #### U A #### [facility] ([facility]) [address] [place] [address] VIR Specific gravity (U) [Rel density] 1.022 Normal 1.003-1.035 [facility] Comment on above: Performed By: #### U A #### [facility] ([facility]) [address] [place] [address] VIR SQUAMOUS EPITHELIUM <^1 Normal 0-5 [facility] Comment on above: Performed By: #### U A #### [facility] ([facility]) [address] [place] [address] VIR TURBIDITY Hazy Abnormal Clear [facility] Comment on above: Performed By: #### U A #### [facility] ([facility]) [address] [place] [address] VIR UROBILINOGEN <1.1 eu/dL Normal <1.1 eu/dL [facility] Comment on above: Performed By: #### U A #### [facility] ([facility]) [address] [place] [address] VIR W.B.CELLS 253 High 0-5 [facility] Comment on above: Performed By: #### U A #### [facility] ([facility]) [address] [place] [address] VIR URINE CULTUREon 09-15-2024 Bacteria identified Cx Nom (U) CULTURE RESULTS ESCHERICHIA COLI >100,000 CFU/mL Escherichia coli [ S = SUSCEPTIBLE R = RESISTANT I = INTERMEDIATE S-DO = Susceptible-dose dependent NS = Non-suscceptible NO = No Interpretation ] Organism: ESCHERICHIA COLI Antibiotic Interpretation ELINOR Status Ampicillin R >=^32.0 F AMP/SULBACTAM R >=^32.0 F PIPERACIL/TAZOBACTAM S <=^4.0 F Cefazolin (non-urinary) R 8.0 F Cefazolin (urinary) S 8.0 F Ceftriaxone S <=^0.25 F Gentamicin S <=^1.0 F Ciprofloxacin S <=^0.06 F Levofloxacin S <=^0.12 F Nitrofurantoin S <=^16.0 F Trimethoprim + Sulfamethoxazole S <=^1.0 F Susceptible [facility] Comment on above: Order Comment: Along with 10,000 to 50,000 CFU/mL Normal [facility]. Performed By: #### C BCA, CMP, THYR #### [facility] ([id number]) [address], [address] [place] [address] IGP,APTIMA HPV,AGE GDLNon AGE GDLN ACOG TESTING Note . [facility] Comment on above: TESTS RESULT FLAG UN ITS REF RANGE LAB Clinician Provided Cytology Information Source.............Vagina No. of containers..01 ThinPrep Vial Age Nicole CLARK Mai... 32 FLAG LEGEND: L-Low Normal,H-High Normal,LL-Alert Low,HH-Alert High <-Panic Low,>-Panic High,A-Abnormal,AA-Critical Abnormal Performed at: 01 =[address] [address] Cheryl Smith MD, HPV APTIMA Negative Negative [facility] Comment on above: This nucleic acid am plification test detects fourteen high- risk HPV types (16,18,31,33,35,39,45,51,52,56,58,59,66,68) without differentiation. Performed at: =[address] [id number] Fruit Shipper: Cheryl Smith MD, Phone: [phone] Performed at: [address] [id number] Fruit Shipper: Cheryl Smith MD, Phone: [phone] IGP, APTIMA HPV, RFX 16/18,45 Note . [facility] Comment on above: TESTS RESULT FLAG UN ITS REF RANGE LAB DIAGNOSIS: 02 NEGATIVE FOR INTRAEPITHELIAL LESION OR MALIGNANCY. CELLULAR CHANGES ASSOCIATED WITH INFLAMMATION ARE PRESENT. FUNGAL ORGANISMS MORPHOLOGICALLY CONSISTENT WITH RUT SPECIES ARE PRESENT. Specimen adequacy: 02 Satisfactory for evaluation. No endocervical component is identified. Performed by: 02 Darron Staton, Shank Turner (ASCP) . 02 Note: Note 02 The Pap smear is a screening test designed to aid in the detection of premalignant and malignant conditions of the uterine cervix. It is not a diagnostic procedure and should not be used as the sole means of detecting cervical cancer. Both false-positive and false-negative reports do occur. Test Methodology: Note 02 This liquid based ThinPrep(R) pap test was screened with the use of an image guided system. HPV Genotype Reflex Note 02 Criteria not met, HPV Genotype not performed. FLAG LEGEND: L-Low Normal,H-High Normal,LL-Alert Low,HH-Alert High <-Panic Low,>-Panic High,A-Abnormal,AA-Critical Abnormal Performed at: [address] [address] Cheryl Smith MD, SPATULA[facility] CBC AND AUTO DIFFon 10-01-19 24 ABSOLUTE BASOPHIL 0.0 X10E9/L Normal 0.0-0.2 [facility] Comment on above: Performed By: #### C BCA, CMP, THYR #### [facility] ([id number]) [address], [address] [place] [address] ABSOLUTE NEUTROPHIL 3.5 X10E9/L Normal 1.5-6.6 [facility] Comment on above: Performed By: #### C BCA, CMP, THYR #### [facility] ([id number]) [address] [place] [address] Basophils/100 WBC (Bld) 0.5 % Normal [facility] Comment on above: Performed By: #### C JASSON CMP, THYR #### [facility] ([id number]) [address] [place] [address] Eosinophils (Bld) [#/Vol] 0.1 10*3/uL Normal 0.0-0.4 [facility] Comment on above: Performed By: #### C BCA, CMP, THYR #### [facility] ([id number]) [address] [place] [address] Eosinophils/100 WBC (Bld) 1.0 % Normal [facility] Comment on above: Performed By: #### C JASSON, CMP, THYR #### [facility] ([id number]) [address] [place] [address] Erythrocyte distribution width (RBC) [Ratio] 13.1 % Normal 11.5-15.0 [facility] Comment on above: Performed By: #### C JASSON, CMP, THYR #### [facility] ([id number]) [address] [place] [address] Hematocrit (Bld) [Volume fraction] 41.2 % Normal 35-47 [facility] Comment on above: Performed By: #### C JASSON, CMP, THYR #### [facility] ([id number]) [address] [address] Hemoglobin (Bld) [Mass/Vol] 13.8 g/dL Normal 11.7-15.5 [facility] Comment on above: Performed By: #### C JASSON, CMP, THYR #### [facility] ([id number]) [address] [place] [address] Lymphocytes (Bld) [#/Vol] 2.0 10*3/uL Normal 1.0-3.5 [facility] Comment on above: Performed By: #### C BCA, CMP, THYR #### [facility] ([id number]) [address], [address] [place] [address] Lymphocytes/100 WBC (Bld) 31.7 % Normal [facility] Comment on above: Performed By: #### C BCA, CMP, THYR #### [facility] ([id number]) [address], [address] [place] [address] MCH (RBC) [Entitic mass] 29.8 pg Normal 27-34 [facility] Comment on above: Performed By: #### C BCA, CMP, THYR #### [facility] ([id number]) [address], [facility] [address] [place] [address] MCHC (RBC) [Mass/Vol] 33.6 g/dL Normal 32-36 [facility] Comment on above: Performed By: #### C BCA, CMP, THYR #### [facility] ([id number]) [address], [address] [place] [address] MCV (RBC) [Entitic vol] 89 fL Normal 80-100 [facility] Comment on above: Performed By: #### C BCA, CMP, THYR #### [facility] ([id number]) [address], [address] [place] [address] Monocytes (Bld) [#/Vol] 0.7 10*3/uL Normal 0-0.9 [facility] Comment on above: Performed By: #### C BCA, CMP, THYR #### [facility] ([id number]) [address], [address] [place] [address] Monocytes/100 WBC (Bld) 11.6 % Normal [facility] Comment on above: Performed By: #### C BCA, CMP, THYR #### [facility] ([id number]) [address], [address] [place] [address] Neutrophils/100 WBC (Bld) 55.2 % Normal [facility] Comment on above: Performed By: #### C BCA, CMP, THYR #### [facility] ([id number]) [address] [place] [address] Platelet mean volume (Bld) [Entitic vol] 10.2 fL Normal 7-12 [facility] Comment on above: Performed By: #### C BCA, CMP, THYR #### [facility] ([id number]) [address] [place] [address] Platelets (Bld) [#/Vol] 199 10*3/uL Normal 150-450 [facility] Comment on above: Performed By: #### C BCA, CMP, THYR #### [facility] ([id number]) [address] [address] [place] [address] RBC COUNT 4.64 X10E12/L Normal 3.80-5.20 [facility] Comment on above: Performed By: #### C BCA, CMP, THYR #### [facility] ([id number]) [address] [place] [address] WBC (Bld) [#/Vol] 6.3 10*3/uL Normal 4.0-11.0 [facility] Comment on above: Performed By: #### C BCA, CMP, THYR #### [facility] ([id number]) [address], [address] [place] [address] COMPREHENSIVE METABOLIC PANE Heber 10-01-2023 Albumin [Mass/Vol] 4.5 g/dL Normal 3.2-5.3 [facility] Comment on above: Performed By: #### C BCA, CMP, THYR #### [facility] ([id number]) [address], [address] [place] [address] ALP [Catalytic activity/Vol] 80 U/L Normal 39-130 [facility] Comment on above: Performed By: #### C BCA, CMP, THYR #### [facility] ([id number]) [address], [address] [place] [address] ALT [Catalytic activity/Vol] 21 U/L Normal 0-31 [facility] Comment on above: Performed By: #### C BCA, CMP, THYR #### [facility] ([id number]) [address] [place] [address] Anion gap [Moles/Vol] 10 mmol/L Normal 5-15 [facility] Comment on above: Performed By: #### C BCA, CMP, THYR #### [facility] ([id number]) [address], [address] [place] [address] AST [Catalytic activity/Vol] 26 U/L Normal 0-41 [facility] Comment on above: Performed By: #### C BCA, CMP, THYR #### [facility] ([id number]) [address], [address] [place] [address] Bilirubin [Mass/Vol] 0.6 mg/dL Normal 0.3-1.2 [facility] Comment on above: Performed By: #### C BCA, CMP, THYR #### [facility] ([id number]) [address] [place] [address] Calcium [Mass/Vol] 9.3 mg/dL Normal 8.5-10.5 [facility] Comment on above: Performed By: #### C BCA, CMP, THYR #### [facility] ([id number]) [address], [address] [place] [address] Chloride [Moles/Vol] 104 mmol/L Normal 98-109 [facility] Comment on above: Performed By: #### C BCA, CMP, THYR #### [facility] ([id number]) [address], [address] [place] [address] CO2 [Moles/Vol] 28 mmol/L Normal 22-32 [facility] Comment on above: Performed By: #### C BCA, CMP, THYR #### [facility] ([id number]) [address], [address] [place] [address] Creatinine [Mass/Vol] 0.57 mg/dL Normal 0.40-1.00 [facility] Comment on above: Result Comment: METH OD TRACEABLE TO IDMS STANDARD Performed By: #### C BCA, CMP, THYR #### [facility] ([id number]) [address], [address] [place] [address] eGFR (CKD-EPI) NON-RACE DEPENDENT >90 Normal >59 [facility] Comment on above: Result Comment: Reported eGFR is based on the CKD-EPI 2020 equation that does not use a race coefficient. Performed By: #### C BCA, CMP, THYR #### [facility] ([id number]) [address], [address] [place] [address] Glucose [Mass/Vol] 79 mg/dL Normal 65-99 [facility] Comment on above: Performed By: #### C BCA, CMP, THYR #### [facility] ([id number]) [address], [address] [place] [address] Potassium [Moles/Vol] 3.4 mmol/L Low 3.5-5.0 [facility] Comment on above: Performed By: #### C BCA, CMP, THYR #### [facility] ([id number]) [address], [facility] [address] [place] [address] Protein [Mass/Vol] 6.9 g/dL Normal 6.0-8.0 [facility] Comment on above: Performed By: #### C BCA, CMP, THYR #### [facility] ([id number]) [address], [address] [place] [address] Sodium [Moles/Vol] 142 mmol/L Normal 134-146 [facility] Comment on above: Performed By: #### C BCA, CMP, THYR #### [facility] ([id number]) [address] [place] [address] Urea nitrogen [Mass/Vol] 12 mg/dL Normal 5-23 [facility] Comment on above: Performed By: #### C BCA, CMP, THYR #### [facility] ([id number]) [address], [address] [place] [address] THYROID PROFILEon 10-01-2023 Free T4 [Mass/Vol] 0.97 ng/dL Normal 0.61-1.60 [facility] Comment on above: Performed By: #### C BCA, CMP, THYR #### [facility] ([id number]) [address], [address] [place] [address] TSH 3.10 uIU/mL Normal 0.49-4.67 [facility] Comment on above: Performed By: #### C BCA, CMP, THYR #### [facility] ([id number]) [address], [address] [place] [address] URINALYSISon 10-01-2023 Bilirubin Ql (U) Negative Normal NEG [facility] Comment on above: Performed By: #### U A #### [facility] ([id number]) [address], [address] [place] [address] BLOOD/HGB Negative Normal NEG [facility] Comment on above: Performed By: #### U A #### [facility] ([id number]) [address], [address] [place] [address] Color (U) YELLOW Normal YELLOW [facility] Comment on above: Performed By: #### U A #### [facility] ([id number]) [address] [place] [address] Glucose Ql (U) Negative Normal NEG [facility] Comment on above: Performed By: #### U A #### [facility] ([id number]) [address] [place] [address] Ketones Ql (U) Negative Normal NEG [facility] Comment on above: Performed By: #### U A #### [facility] ([id number]) [address] [place] [address] Leukocyte esterase Test strip Ql (U) Large Abnormal NEG [facility] Comment on above: Performed By: #### U A #### [facility] ([id number]) [address] [place] [address] MUCOUS PRESENT Abnormal NONE [facility] Comment on above: Performed By: #### U A #### [facility] ([id number]) [address], [address] [place] [address] Nitrite Ql (U) Negative Normal NEG [facility] Comment on above: Performed By: #### U A #### [facility] ([id number]) [address] [place] [address] pH (U) 6.5 [pH] Normal 5.0-8.5 [facility] Comment on above: Performed By: #### U A #### [facility] ([id number]) [address], [address] [place] [address] Protein Ql (U) Negative Normal NEG [facility] Comment on above: Performed By: #### U A #### [facility] ([id number]) [address] [place] [address] R.B.CELLS 3 /hpf Normal 0-5 [facility] Comment on above: Performed By: #### U A #### [facility] ([id number]) [address], [address] [place] [address] Specific gravity (U) [Rel density] 1.007 Normal 1.003-1.035 [facility] Comment on above: Performed By: #### U A #### [facility] ([id number]) [address] [place] [address] SQUAMOUS EPITHELIUM 5 /hpf Normal 0-5 [facility] Comment on above: Performed By: #### U A #### [facility] ([id number]) [address] [address] [place] [address] TURBIDITY CLEAR Normal CLEAR [facility] Comment on above: Performed By: #### U A #### [facility] ([id number]) [address] [place] [address] Urobilinogen (U) [Mass/Vol] mg/dL Normal <1.1 [facility] Comment on above: Performed By: #### U A #### [facility] ([id number]) [address] [address] [place] [address] W.B.CELLS 6 /hpf High 0-5 [facility] Comment on above: Performed By: #### U A #### [facility] ([id number]) [address] [address] [place] [address] URINE CULTUREon 10-01-2023 Bacteria identified Cx Nom (U) CULTURE RESULTS 10-50,000 ORGANISMS/mL NORMAL UROGENITAL EDGAR Normal [facility] Comment on above: Performed By: #### 6 30-4 #### [facility] ([id number]) [address] [address] [place] [address] CHLAMYDIA/GONOCOCCUS SANDRA (SW AB/URINE/PAPon 07-02-2022 Chlamydia trachomatis, SANDRA Negative Normal Negative [facility] Comment on above: Performed By: #### C T/NGNA #### [facility] [address] [place] [address] Dr. Sudhakar Chaney Neisseria gonorrhoeae, SANDRA Negative Normal Negative [facility] Comment on above: Performed By: #### C T/NGNA #### [facility] [address] [place] [address] Dr. Sudhakar Cahney VAGINITIS/VAGINOSIS DNA PROB Cb 07-02-2022 Rut species Negative Normal Negative [facility] Comment on above: Performed By: #### V AGINT #### [facility] [address] [place] [address] Dr. Sudhakar Chaney Gardnerella vaginalis Negative Normal Negative [facility] Comment on above: Performed By: #### V AGINT #### [facility] [address] [place] [address] Dr. Sudhakar Chaney Trichomonas vaginalis Negative Normal Negative [facility] Comment on above: Performed By: #### V AGINT #### [facility] [address] [place] [address] Dr. Sudhakar Chaney CHLAMYDIA/GONOCOCCUS SANDRA (SW AB/URINE/PAPon 04-04-2022 Chlamydia trachomatis, SANDRA Negative Normal Negative [facility] Comment on above: Performed By: #### C T/NGNA #### [facility] [address] [place] [address] Dr. Sudhakar Chaney Neisseria gonorrhoeae, SANDRA Negative Normal Negative [facility] Comment on above: Performed By: #### C T/NGNA #### [facility] [address] [place] [address] Dr. Sudhakar Chaney VAGINITIS/VAGINOSIS DNA PROB Cb 04-03-2022 Rut species Negative Normal Negative [facility] Comment on above: Performed By: #### V AGINT #### [facility] [address] [place] [address] Dr. Sudhakar Chaney Gardnerella vaginalis Positive Abnormal Negative [facility] Comment on above: Performed By: #### V AGINT #### [facility] [address] [place] [address] Dr. Sudhakar Chaney Trichomonas vaginalis Negative Normal Negative [facility] Comment on above: Performed By: #### V AGINT #### [facility] [address] [address] [address] Sudhakar Chaney Reminderson 12-07-2018 Reminders - From: Gi Valdes CMA To: DEVENDRA - Reminders/Recalls; Sent: 08/19/2018 09:17:44 EDT Show up: 10/23/2018 09:17:00 EDT Subject: 2018 RECALL Due Date/Time: 12/12/2018 09:17:00 EDT Reminder/Recall Colonoscopy recall [address] Duckworth Due 12/12/18 Sent First Recall Letter Clp Second Recall Letter Sent Normal [facility] Vital Signs Date Time Vital Sign Value Performing Clinician Faci lity 10-09-2024 15:10-0400 Body mass index (BMI) [Ratio] 23.93 kg/m2 Gemini WINKLER Work Phone: [facility] 10-09-2024 15:10-0400 Body weight 69.31 kg Gemini WINKLER Work Phone: [facility] 10-09-2024 15:10-0400 Diastolic blood pressure 78 mm[Hg] Gemini WINKLER Work Phone: [facility] 10-09-2024 15:10-0400 Systolic blood pressure 122 mm[Hg] Gemini WINKLER Work Phone: [facility] Encounters Encounter Date Encounter Type Care Provider Facility Start: 10-09-2024 End: 10-09-2024 Patient encounter procedure Gemini WINKLER Work Phone: [facility] Work Phone: Start: 10-09-2024 End: 10-09-2024 Periodic preventive med est patient 40-64yrs Gemini WINKLER Work Phone: [facility] Comment on above: Hot flashes due to m enopause (Primary Dx); Well woman exam with routine gynecological exam; Breast cancer screening by mammogram; Postmenopausal state Start: 10-09-2024 End: 10-09-2024 Bamboo flowsheet Gemini WINKLER Work Phone: [facility] Start: 10-09-2024 End: 10-09-2024 Bamboo flowsheet Gemini WINKLER Work Phone: [facility] Start: 09-18-2024 End: 09-18-2024 Emergency department patient visit KYAW [facility] Start: 09-15-2024 End: 09-16-2024 Emergency department patient visit KYAW Vent[facility] Start: 09-15-2024 ambulatory KYAW Vent[facility] Start: 10-06-2023 End: 10-12-2023 Clinisync Result Encounter Gemini WINKLER Work Phone: [facility] Unsolicited Start: 10-06-2023 End: 10-12-2023 Clinisync Result Encounter Gemini WINKLER Work Phone: [facility] Unsolicited Start: 10-01-2023 End: 10-01-2023 ambulatory [facility] Start: 08-04-2023 End: 08-04-2023 ambulatory JAXON INTERIANO Not Available Start: 07-21-2023 End: 07-21-2023 ambulatory JAXON INTERIANO Not Available Start: 07-08-2023 End: 07-08-2023 ambulatory JAXON T INTERIANO Not Available Start: 06-28-2023 End: 06-28-2023 ambulatory [facility] Start: 06-22-2023 End: 06-22-2023 ambulatory EMELYN ZAMARRIPA Not Available Start: 06-17-2023 End: 06-17-2023 ambulatory JAXON INTERIANO Not Available Start: 05-26-2023 End: 05-26-2023 ambulatory JAXON LAISHA Not Available Start: 05-19-2023 End: 05-19-2023 ambulatory FELICIA CASTELLON Not Available Start: 02-23-2023 End: 02-23-2023 ambulatory JAXON T INTERIANO Not Available Start: 06-29-2022 End: 06-29-2022 ambulatory GEMINI LOPEZ . Facility: Start: 04-01-2022 End: 04-01-2022 ambulatory GEMINI LOPEZ . Facility:[facility] Start: 08-12-2017 Ambulatory ROSALINA ROMAN Facility :[id number] Procedures Date Procedure Procedure Detail Performing Clinician Start: 10-06-2023 IGP,APTIMA HPV,AGE GDLN Gemini WINKLER Work Phone: Start: 10-06-2023 Microscopic observat ion [Identifier] in Cervix by Cyto stain Gemini WINKLER Work Phone: Start: 07-12-2023 Colonoscopy Gemini WINKLER Work Phone: Start: 06-28-2023 Colonoscopy Colonoscopy TAMI VARGAS Start: 09-22-2022 Mammography Gemini WINKLER Work Phone: Plan of Treatment Date Care Activity Detail Author Start: 07-11-2033 Screening for malignant neoplasm of colon [facility] Start: 10-05-2028 Screening for malignant neoplasm of cervix [facility] Start: 10-11-2025 End: 10-11-2025 Patient encounter procedure 10/11/2025 8:30 AM EDT Procedure Visit NILDA OSBORNE [address] [place] [address] Gemini Lopez PA [address] [place] [address] NILDA Quinonez OBANDREY Start: 10-23-2024 Influenza vaccination Influenza Vacc ine (#1) [facility] Start: 10-09-2024 End: 10-09-2024 Patient encounter procedure [facility] Comment on above: Arrived Start: 10-09-2024 End: 10-09-2025 DXA Skeletal system Views for bone density DEXA bone density Imaging Routine Postmenopausal state Expected: 10/09/2024 (Approximate), Expires: 10/09/2025 [facility] Comment on above: Expected: 10/09/2024 (Approximate), Expires: 10/09/2025 Start: 10-09-2024 End: 12-09-2025 MG Breast - bilateral Screening Bilateral screening mammogram Imaging Routine Breast cancer screening by mammogram Expected: 10/09/2024, Expires: 12/09/2025 [facility] Work Phone: Comment on above: Expected: 10/09/2024 , Expires: 12/09/2025 Start: 10-24-2023 Influenza vaccination Influenza Vacc ine (#1) [facility] Start: 09-23-2023 Screening for malignant neoplasm of breast Mammogram [facility] Start: 01-04-2002 Screening for malignant neoplasm of cervix [facility] Start: 01-04-1993 Screening for malignant neoplasm of cervix Pap Smear [facility] Start: 1972 Screening for malignant neoplasm of colon [facility] THIN PREP TIS PAP AN D HR HPV DNA THIN PREP TIS PAP AND HR HPV DNA Pathology and Cytology Routine Well woman exam with routine gynecological exam Ordered: 10/09/2024 [facility] Comment on above: Ordered: 10/09/2024 Immunizations Immunization Date Immunization Notes Care Provider [facility] 01-17-2024 influenza virus vacc ine, unspecified formulation Gemini WINKLER Work Phone: [facility] 11-11-2022 influenza virus vacc ine, unspecified formulation Gemini WINKLER Work Phone: [facility] Payers Date Payer Category Payer Private Health Insurance [employer] [id number] 2024 Unknown [id number] 2023 Private Health Insurance [id number] 2023 Unknown [id number] 2021 Unknown .[id number]. [id number] 1972 Unknown [id number] 2.16.840.1.279835.3.579.2. 593 1972 Unknown [id number] 2.16.840.1.870014.3.579.2. 593 1972 Unknown [id number] 2.16.840.1.294043.3.579.2. 1286 1972 Unknown [id number] 2.16.840.1.923795.3.579.2. 1259 1972 Unknown [id number] 2.16.840.1.070458.3.579.2. 125 1972 Unknown [id number] 2.16.840.1.755860.3.579.2. 9 1972 Unknown [id number] 2.16840.1.891715.3.579.2. 1259 1972 Unknown [id number] 2.16.840.1.494909.3.579.2. 1259 1972 Unknown [id number] 2.16.840.1.346380.3.579.2. 125 1972 Unknown [id number] 2.16.840.1.742842.3.579.2. 1259 1972 Unknown [id number] 2.16840.1.604015.3.579.2. 1259 1972 Unknown [id number] 2.16.840.1.813311.3.579.2. 1286 1972 Unknown [id number] 2.16.840.1.477990.3.579.2. 128 1972 Unknown [id number] 2.16.840.1.062735.3.579.2. 128 1972 Unknown [id number] 2.16.840.1.332818.3.579.2. 128 1959 Self-pay 1959 Unknown [id number] Social History Date Type Detail Facility Start: 08-12-2022 Tobacco smoking stat [facility] Ex-smoker [facility] End: 05-23-2017 History of tobacco use Current smoker [facility] End: 05-23-2017 History of tobacco use Cigarette Smoker [facility] Start: 10-06-2023 End: 10-09-2024 Alcoholic beverage intake Current drinker of alcohol (finding) [facility] Start: 08-04-2023 End: 10-09-2024 History of Social function [facility] Start: 08-04-2023 End: 10-09-2024 Tobacco use panel [facility] Start: 08-12-2022 Alcohol Comment 3 or 4 drinks/ monthly or less. Caffeine: none [facility] Start: 1970 Sex assigned at Not on file [facility] History of Present illness Narrative 10-09-2024 CATHI Salgado - 10/09/2024 3:00 PM EDT Note Date & Type Note Facility 10-09-2024 History of Presen t illness Narrative Reason for Appointment: Patient ID: Yvonne Hendricks [...] nursing note reviewed. Exam conducted with a fuse assembler present. Vitals: Estimated body mass index is 23.93 kg/m as calculated from the following: Height as [...] of: CATHI Salgado documented in this encounter [facility] Evaluation note Note Date & Type Note Facility Evaluation note Diagnosis Hot flashes due to menopause- Primary Well woman exam with routine gynecological exam Routine gynecological examination Breast cancer screening by mammogram Postmenopausal state Asymptomatic postmenopausal status (age-related) (natural) documented in this encounter [facility] Summary Purpose Family History No Family History Records FoundNo Family History Records FoundNo Family History Records FoundNo Family History Records FoundNo Family History Records FoundNo Family History Records Found Advance Directives No Advanced Directives Records FoundNo Advanced Directives Records FoundNo Advanced Directives Records FoundNo Advanced Directives Records FoundNo Advanced Directives Records FoundNo Advanced Directives Records Found Additional Source Comments INFORMATION SOURCE (unrecogn ized section and content) DATE CREATED AUTHOR 08/10/2017 [facility] DATE CREATED AUTHOR AUTHOR'S ORGANIZ ATION 12/07/2018 [facility] DATE CREATED AUTHOR AUTHOR'S ORGANIZ ATION 07/03/2022 [facility] DATE CREATED AUTHOR AUTHOR'S ORGANIZ ATION 06/29/2023 [facility] DATE CREATED AUTHOR AUTHOR'S ORGANIZ ATION 08/05/2023 [facility] EPIC DATE CREATED AUTHOR AUTHOR'S ORGANIZ ATION 09/20/2024 [facility] Care Teams (unrecognized sec tion and content) Packager Machine Relationship Specialty Start Date End Date Kyaw Romero MD [address] [place] [id number] PCP - General Internal Medicine 02/23/23 Pack[employer] Machine Relationship Specialty Start Date End Date Kyaw Romero MD [address] [place] [address] PCP - General Internal Medicine 02/23/23 Packager Machine Relationship Specialty Start Date End Date Kyaw Romero MD [address] [place] [address] PCP - General Internal Medicine 02/23/23 Reason for Visit (unrecogniz ed section and content) Reason Comments Well Women Visit FOR RECORDS PERTAINING TO PATIENTS WHO ARE OR HAVE BEEN ENROLLED IN A CHEMICAL DEPENDENCY/SUBSTANCEABUSE PROGRAM, SOME INFORMATION MAY BE OMITTED. This clinical summary was aggregated from multiple sources. Caution should be exercised in using it in the provision of clinical care. This summary normalizes information from multiple sources, and as a consequence, information in this document may materially change the coding, format and clinical context of patient data. In addition, data may be omitted in some cases. CLINICAL DECISIONS SHOULD BE BASED ON THE PRIMARY CLINICAL RECORDS. [employer] provides no warranty or guarantee of the accuracy or completeness of information in this document.
[2024-10-12 12:09] LABS: Age Gdln ACOG Testing Note (.); IGP, Aptima HPV, rfx 16/18,45 Note (.)
== END 2024-10-09 19:21 | disposition home or self-care (01) ==
LOC: LAB 19:20
PROVIDERS: Visit Provider Physician Assistant
DX: Z01.419 Encounter for gynecological examination (general) (routine) without abnormal findings (principal)
CPT/HCPCS: 87624; 88175